=== PATIENT | male | born 1980 | race Caucasian/White ===

== ENCOUNTER 2020-01-10 13:14 | Outpatient (CLI) | payer MEDICAID, SELFPAY ==
--- NOTE | 2020-01-10 13:19 | MR_ITS ---
WS: [id number] MRI LUMBAR SPINE NONCONTRAST HISTORY: M54.5 Low back pain COMPARISON: None available. TECHNIQUE: Sagittal and axial multisequence imaging is submitted. Disc osteophyte disease encroaching upon the ventral cervical cord at C5-6. Mild ectopia of the cereb ellar tonsils. Normal lumbar alignment with no compression fractures or marrow edema. Moderate disc space narrowing and desiccation at L4-5. Mild desiccation at L5-S1. Conus terminates normally at mid L1. L1-L2: Normal. L2-L3: Small amount of fluid in the facet joints. No stenosis. L3-L4: Very shallow central disc protrusion. Mild ligamentum flavum disease and facet arthritis. No s tenosis. L4-L5: Mild diffuse annular disc bulging with a focal central disc protrusion causing mild contact on the ventral thecal sac. There is disc contact upon the L5 nerve roots bilaterally the lateral recess es. Mild bilateral foraminal stenosis. L5-S1: Mild osteophytic ridging with a central disc protrusion. Mild contact on the ventral thecal sa c. The disc protrusion is slightly greater to the LEFT with mild contact and displacement of the S1 n erve root. Retroperitoneum is negative. MR/MR lumbar spine wo con* [id number] IMPRESSION: 1. Mild contact on the L5 nerve roots in the subarticular recesses and mild bi lateral foraminal narrowing. 2. Central disc protrusion at L5-S1 with mild displacement and contact on the LEFT S1 nerve root. 3. No severe central stenosis.
== END 2020-01-10 13:15 | disposition home or self-care (01) ==
LOC: RADSHAW 13:17
PROVIDERS: PCP Nurse Practitioner Family; Visit Provider Nurse Practitioner Family
DX: M51.27 Other intervertebral disc displacement, lumbosacral region (principal)
CPT/HCPCS: 72148; A9579

== ENCOUNTER → 2020-02-01 08:17 | Outpatient (BNVA) | payer MEDICAID, SELFPAY | PROVIDERS: PCP Nurse Practitioner Family; Referring Provider Nurse Practitioner Family; Visit Provider Anesthesiology Pain Medicine | DX: G89.29 Other chronic pain (principal); M51.36 Other intervertebral disc degeneration, lumbar region; M54.16 Radiculopathy, lumbar region; M47.816 Spondylosis without myelopathy or radiculopathy, lumbar region; M96.1 Postlaminectomy syndrome, not elsewhere classified | CPT/HCPCS: 99205 ==

== ENCOUNTER → 2020-03-01 09:14 | Outpatient (BNVA) | payer MEDICAID, SELFPAY | PROVIDERS: PCP Nurse Practitioner Family; Visit Provider Anesthesiology Pain Medicine | DX: M54.41 Lumbago with sciatica, right side (principal); M47.816 Spondylosis without myelopathy or radiculopathy, lumbar region; M51.36 Other intervertebral disc degeneration, lumbar region; M54.16 Radiculopathy, lumbar region; M54.12 Radiculopathy, cervical region | CPT/HCPCS: 99213; 99215 ==

== ENCOUNTER 2020-03-19 13:12 | Outpatient (CLI) | payer MEDICAID, SELFPAY ==
--- NOTE | 2020-03-19 13:45 | MR_ITS ---
WS: [id number] MRI CERVICAL SPINE NONCONTRAST HISTORY: M54.12 - Radiculopathy, cervical region COMPARISON: None available. Technique: Multiplanar, multisequence noncontrast imaging of the cervical spine. Very mild straightening of the normal cervical lordosis. No fractures. Reactive marrow edema in the e ndplates of C5 and C6. Mild disc space narrowing and desiccation at C5-6 and C6-7. Signal within the cord is normal. Craniocervical junction, C1 and C2 relationship, odontoid process and soft tissues are normal. C2-C3: Mild osteophytic ridging with no stenosis. C3-C4: Mild osteophytic ridging with no stenosis. C4-C5: Normal. C5-C6: Moderate osteophytic ridging with osteophytes encroaching into the LEFT paracentral and proxim al LEFT foramen and to a lesser extent the RIGHT foramen. Mild central stenosis. This is predominantl y due to osteophyte disease with a smaller component of disc disease. Moderate LEFT and mild RIGHT fo raminal stenosis. C6-C7: Diffuse osteophytic ridging with a central shallow disc protrusion. Very mild central and bila teral foraminal stenosis. C7-T1: Normal. Paraspinal soft tissue are normal. MR/MR cervical spin wo con* [id number] IMPRESSION: 1. Disc osteophyte disease at C5-6 contributing to mild central and RIGHT fora albert stenosis with moderate LEFT foraminal stenosis. Most significant disc ost eophyte encroachment in the proximal LEFT foramen. 2. Mild central and bilateral foraminal stenosis at C6-7 due to disc osteophyt e disease and mild encroachment upon the ventral thecal sac.
== END 2020-03-19 13:13 | disposition home or self-care (01) ==
LOC: RADSHAW 13:14
PROVIDERS: PCP Nurse Practitioner Family; Visit Provider Anesthesiology Pain Medicine
DX: M54.12 Radiculopathy, cervical region (principal); M25.78 Osteophyte, vertebrae; M48.02 Spinal stenosis, cervical region
CPT/HCPCS: 72141

== ENCOUNTER → 2020-04-10 09:08 | Outpatient (BNVA) | payer MEDICAID, SELFPAY | PROVIDERS: PCP Nurse Practitioner Family; Visit Provider Anesthesiology Pain Medicine | DX: G89.29 Other chronic pain (principal); M54.41 Lumbago with sciatica, right side; M54.16 Radiculopathy, lumbar region; M51.36 Other intervertebral disc degeneration, lumbar region; M47.816 Spondylosis without myelopathy or radiculopathy, lumbar region; M54.12 Radiculopathy, cervical region; Z79.891 Long term (current) use of opiate analgesic | CPT/HCPCS: 99215 ==

== ENCOUNTER → 2020-04-18 13:26 | Outpatient (BNVA) | payer MEDICAID, SELFPAY | PROVIDERS: PCP Nurse Practitioner Family; Visit Provider Orthopaedic Surgery | DX: M54.12 Radiculopathy, cervical region (principal) | CPT/HCPCS: 72050 ==

== ENCOUNTER → 2020-05-03 12:15 | Outpatient (BNVA) | payer MEDICAID, SELFPAY | PROVIDERS: PCP Nurse Practitioner Family; Visit Provider Orthopaedic Surgery | DX: M47.12 Other spondylosis with myelopathy, cervical region (principal); Z20.822 Contact with and (suspected) exposure to COVID-19 | CPT/HCPCS: 87635 ==

== ENCOUNTER 2020-05-08 10:46 | Day surgery (SDC) | payer MEDICAID, SELFPAY ==
[2020-05-03 11:31] VITALS: BMI 28.4
--- NOTE | 2020-05-03 13:17 | ANES.PREANE2 ---
Pre-Anesthetic Assessment Pre-Anesthetic Assessment: Height/Weight: Height 1.78 m Weight 89.811 kg Proposed Procedure: Operation Date: 05/08/20 12:05 Proposed Procedures p Anterior Cervical Discectomy & Fusion ACDF 07/22 32082 [id number] 48437 20782 64087 M47.12 M54.12(Not Applicable) - Edmundomatthew Drew Caron, DO Was Beta Leon taken within 24 hours: N/A Was Clonidine taken within 24 hours: N/A Social: Social History: Tobacco and No alcohol Exam: Pre-Anes Outpt Exam: alert, oriented x 3, clear to auscultation bilaterally and regular rate & rhythm Airway: Submandibular: WNL Cervical ROM: WNL MP: 2 Additional comments: Missing several Musc/skel: Musc/skel: Lower Back Pain Comments: Chronic pain, RUE pain Neuropsych: Neuropsych: Anxiety Anesthetic Plan: ASA status: 3 Risk of > 500 ml blood loss (7ml/kg in children): No PFSH Anesthesia PFSH: Medical History Anxiety Failed back syndrome of lumbar spine Lumbar pain with radiation down both legs PTSD (post-traumatic stress disorder) Surgical History Hx of lumbosacral spine surgery Family History Mother Diabetes Social History Smoking and tobacco status: never smoked Second hand smoke exposure: No Lives independently: Yes History of recent travel: No Data Anesthesia Cardiac Studies: No Data to Display
[2020-05-08] VITALS (11 sets, daily range): BP systolic 105–134; BP diastolic 68–97; PULSE 71–110; RESP 12–24; TEMP 36.4–36.7; O2SAT 92–98
--- NOTE | 2020-05-08 | SCC_ITS ---
Procedure Done: 1. Anterior diskectomy C5/6 2. Anterior discectomy C6/7 3. Insertion of cage C5/6 4. Insertion of Cage C6/7 5. Instrumentation with anterior plate from C5-C7 6. Use of allograft 15.4 seconds of fluoroscopic guidance, for a cumulative dose of 1.96 mGy, was provided to Dr. De La Rosa by the radiology department. C-arm images of the cervical spine were saved for the patient's permanent record. [facility]
--- NOTE | 2020-05-08 | XR_ITS ---
WS: [id number] C-ARM RADIOGRAPHS CERVICAL SPINE; 4 IMAGES HISTORY: ACDF COMPARISON: None available. Intraoperative imaging during internal cervical fusion placement. Anterior cervical fusion plate and screws extends from C5 to C7 with interbody spacers at C5-6 and C6-7. Alignment is normal. XR/XR cervical spine 3V* [id number] IMPRESSION: Intraoperative imaging during anterior cervical fusion from C5 to C7.
[2020-05-08] MEDS: sodium chloride 0.9% 1,000 ML 30 ML IV (11:39)
[2020-05-08] MEDS: ondansetron 2 mg/ML SDV 2 mL 4 MG IVP (11:39)
--- NOTE | 2020-05-08 11:57 | P.ANESUD_ITS ---
Pre-Anesthetic Update Pre-Anesthetic Assessment: Date of Surgery/Procedure: 05/08/20 Preop Karly gnosis: cervical spondylosis with myelopathy Proposed Procedure: Operation Date: 05/08/20 12:15 Proposed Procedures p Anterior Cervical Discectomy & Fusion ACDF 07/22 46533 85092 64429 46493 71690 M47.12 M54.12(Not Applicable) - Edmundo De La Rosa, DO Any changes to Pre-Anesthetic Assessment?: No Last Intake: Intake Last Liquid Date 05/07/20 Last Liquid Time 22:30 Last Solid Date 05/07/20 Last Solid Time 21:00 Vitals: Temperature 98.0 F 05/08/20 11:06 Temperature Source Temporal Artery S can 05/08/20 11:06 Pulse Rate 110 H 05/08/20 11:40 Pulse Rhythm 05/08/20 11:13 Pulse Strength 3+ Normal 05/08/20 11:13 Respiratory Rate 16 05/08/20 11:40 Blood Pressure 108/73 05/08/20 11:40 Blood Pressure Sheeba n 84 05/08/20 11:40 Pulse Oximetry 95 05/08/20 11:40 Oxygen Delivery Me thod 05/08/20 11:40 Exam: Pre-Anes Outpt Exam: alert, oriented x 3, clear to auscultation bilaterally and regular rate & rhythm Other Pertinent Information: Other Pertinent Information: Remembers reaching for his mask on previou ssurgery Cardiac Studies: No Data to Display
[2020-05-08 12:17] LABS: Basophils # 0.1 10^3/uL (0.0-0.1); Basophils % 0.7 %; Eosinophils # 0.1 10^3/uL (0.0-0.8); Eosinophils % 0.8 %; Hematocrit 50.5 % (42.0-52.0); Hemoglobin 16.9 g/dL (11.7-16.6); Lymphocytes # 3.1 10^3/uL (0.8-4.8); Mean Corpuscular HGB Conc 33.5 g/dL (30.0-36.0); Mean Corpuscular Hemoglobin 31.2 pg (28.0-34.0); Mean Corpuscular Volume 93.3 fL (80-94); Mean Platelet Volume 10.9 fL (7.4-10.4); Monocytes # 0.5 10^3/uL (0.2-0.9); Monocytes % 6.1 %; Neutrophils # 3.85 10^3/uL (1.8-7.7); Neutrophils % 51.1 %; Nucleated Red Blood Cells % 0 %; Platelet Count 261 10^3/cmm (130-400); Red Blood Count 5.41 10^6/uL (4.1-5.3); Red Cell Distribution Width 11.8 % (12.1-15.1); White Blood Count 7.5 10^3/uL (4.0-10.0)
[2020-05-08 12:35] LABS: Blood Urea Nitrogen 12 mg/dL (6-20); Carbon Dioxide 26 mmol/L (22-29); Glomerular Filtration Rate 94.4 mL/min (90-130); Glucose 108 mg/dL (65-115)
[2020-05-08 13:19] LABS: Chloride 101 mmol/L (98-107); Osmolality Calculated 284 mOsm/kg (285-295); Sodium 137 mmol/L (136-145)
[2020-05-08 13:20] LABS: Anion Gap 13.9 (5-19); Potassium 3.9 mmol/L (3.5-5.1)
--- NOTE | 2020-05-08 14:16 | P.HP_ITS ---
Providers/Chief Complaint Primary Care Provider: CONCEPCIÓN العلي Chief Complaint: radiculopaty History of Present Illness Darien Bell is a 39 year old male patient who presents to the clinic for evaluation of his neck pain. He has had pain to his neck and lower back for several years. He states his pain is gradually worsening. He has complaints of numbness and tingling to both hands, complaints of headaches daily. He was being seen by Dr. Amaya, and referred here. Associated symptoms: Denies abdominal pain, chills, fever(s), nausea or vomiting Review of Systems Narrative: Denies: fever(s) or chills Card: Denies: chest pain or dyspnea on exertion Resp: Denies: dyspnea or productive cough GI: Denies: abdominal pain, nausea or vomiting Musc: Reports: neck pain Skin/Breast: Denies: changes in skin color or dry skin Neuro: Reports: headache(s) and numbness in extremities; Denies: weakness in extremities Psych: Denies: anxiety Rahul/Lymph: Denies: easy bruising or easy bleeding Medications/Allergies Home Medications Medication Instructions Recorded Confirmed Last Taken Type [id number] Bone Growth Stimulator #1 ea 04/22/20 04/23/20 Unknown Rx baclofen 10 mg tablet 10 mg PO BID #28 tab 04/23/20 05/08/20 05/06/20 Rx duloxetine 60 mg capsule,delayed 60 mg PO DAILY #30 cap 04/29/20 05/08/20 05/07/20 Rx release Allergies Allergy/AdvReac Type Severity Reaction Status Date / Time amitriptyline AdvReac Severe ALGY-Anaphy Verified 05/03/20 11:29 laxis PFSH Acute PFSH: Medical History Anxiety Failed back syndrome of lumbar spine Lumbar pain with radiation down both legs PTSD (post-traumatic stress disorder) Surgical History Hx of lumbosacral spine surgery Family History Mother Diabetes Social History Smoking and tobacco status: never smoked Second hand smoke exposure: No Lives independently: Yes History of recent travel: No Vitals/I&O/Wt Last Vital Signs Temp 98.0 F 05/08/20 11:06 Pulse 110 H 05/08/20 11:40 Resp 16 05/08/20 11:40 BP 108/73 05/08/20 11:40 Pulse Ox 95 05/08/20 11:40 Physical Exam Narrative: EXAM NARRATIVE: EXAM NARRATIVE: CONSTITUTIONAL: The patient is normal appearing, well groomed, cooperative and in no apparent distress. GENERAL: Patient in no acute distress. Well nourished. CARDIAC: Regular rate and rhythm. CHEST: Normal inspiratory effort, normal respiratory rate. ABDOMEN: Soft and non-tender SKIN: Clear, warm and intact. NEURO?PSYCH: The patient is alert and oriented to person, place and time. NEUROVASCULAR: Upper Extremity Sensory - SILT. Motor Strength: Shoulder abduction C5: 5/5; Wrist extension C6: 5/5; Elbow extension C7: 5/5; Hand Injection Mold Technician C8: 5/5; Finger abduction T1: 5/5. Radial/ Ulnar/ Median in intact Lower Extremity Sensory - SILT. Motor Strength: Hip flexion L2/3; Ant/inner thigh: 5/5; Hip adduction L2/3: 5/5; Knee extension L4 Lat thigh: 5/5; Toe dorsiflexion L5: 5/5; Ankle dorsiflexion L5/ S1: 5/5; Plantar flexion S1: 5/5. DTR: Triceps 2+; Brachioradialis 2+; Patellar 2+; Achilles 2+. MUSCULOSKELETAL: UPPER EXTREMITIES: The patient had full active ROM in fingers, wrist, elbow, and shoulder. The patient demonstrated ability to fully flex/extend/abduct/adduct fingers, make ok sign, cross 2nd/3rd digits, extend 1st digit fully.. Radial pulse 2+, CR<2 seconds. LOWER EXTREMITIES: Pt has full, active ROM of toes, ankle, knee, and hip. Dorsalis pedis & posterior tibialis pulses 2+, CR<2 seconds. SPINE: Skin warm, dry, intact. Data : 05/08/20 11:40 05/08/20 11:40 A&P Assessment and plan (1) Cervical spondylosis with myelopathy: C5/6 C6/7 ACDF Status: Acute Attestations Medical Necessity Statement*: progressive numbness Coding Level of Care Code Acute Bridge Design Engineer for Chg Rumad Diagnoses Cervical spondylosis with myelopathy M47.12
[2020-05-08] MEDS: thrombin 5,000 unit SDV 5000 UNIT XX (15:49)
--- NOTE | 2020-05-08 17:21 | PM.OP ---
Operative Report Date of procedure: May 08, 2020 Pre-op Diagnosis: cervical spondylosis with myelopathy Post-op diagnosis: same Procedure Done: 1. Anterior diskectomy C5/6 2. Anterior discectomy C6/7 3. Insertion of cage C5/6 4. Insertion of Cage C6/7 5. Instrumentation with anterior plate from C5-C7 6. Use of allograft Surgeon: Edmundo De La Rosa Anesthesia: General Estimated blood loss (mL): 25 Condition: stable Disposition: PACU Procedure: 1. Anterior diskectomy C5/6 2. Anterior discectomy C6/7 3. Insertion of cage C5/6 4. Insertion of Cage C6/7 5. Instrumentation with anterior plate from C5-C7 6. Use of allograf The patient was taken to the operating room, where he underwent general endotracheal anesthesia without complications. He was then positioned supine on the operating table, and all areas of impingement were well padded. The arms were carefully padded and tucked at his sides. A roll was placed between the shoulder blades.. An x-ray was done to determine the appropriate level for the skin incision. The entire neck was then sterilely prepped and draped in the usual fashion. Neuromonitoring was attached prior to prepping. A transverse skin incision was made and carried down to the platysma muscle. This was then split in line with its fibers. Blunt dissection was carried down medial to the carotid sheath and lateral to the trachea and esophagus until the anterior cervical spine was visualized. A needle was placed into a disc and an x-ray was done to determine its location. The longus colli muscles were then elevated bilaterally with the electrocautery unit. Self-retaining retractors were placed deep to the longus colli muscle. Attention was brought to the C5/6/7 level that was confirmed on x-ray. A caspar pin was placed into the C5 vertebrae and the C6 vertebrae. The disk space was then distracted. The microscope was then brought in. A radical anterior discectomies were performed at C5/6. This included complete removal of the anterior annulus, nucleus, and posterior annulus. The posterior longitudinal ligament was removed as were the posterior osteophytes. Foraminotomies were then accomplished bilaterally. This was done using a high speed sharath, kerrison rongeurs and curretes Once all of this was accomplished, the curved currette was used to check for any residual compression. The central canal was wide open as were the foramen. A high-speed bur was used to remove the cartilaginous endplates above and below the interspace. Bleeding cancellous bone was exposed. The disc space were measured and appropriate size cage were placed sterilely onto the field. Allograft graft was packed into the cages. The cage was then placed and there was good juxtaposition against the bleeding decorticated surfaces and good distraction of each interspace. Attention was brought to the next interspace. A caspar pin was placed into the C6 vertebrae and the C7 vertebrae. The disk space was then distracted. The microscope was then brought in. A radical anterior discectomies were performed at C6/7. This included complete removal of the anterior annulus, nucleus, and posterior annulus. The posterior longitudinal ligament was removed as were the posterior osteophytes. Foraminotomies were then accomplished bilaterally. This was done using a high speed sharath, kerrison rongeurs and curretes Once all of this was accomplished, the curved currette was used to check for any residual compression. The central canal was wide open as were the foramen. A high-speed bur was used to remove the cartilaginous endplates above and below the interspace. Bleeding cancellous bone was exposed. The disc space were measured and appropriate size cage were placed sterilely onto the field. Allograft graft was packed into the cages. The cage was then placed and there was good juxtaposition against the bleeding decorticated surfaces and good distraction of each interspace The [place] pins were removed. Bone wax was used to prevent any bleeding from occurring at the pin sites. The appropriate size anterior cervical locking plate was chosen and bent into gentle lordosis. Two screws were then placed into each of the vertebral bodies at C5,C6 and C7. There was excellent purchase. A final x-ray was done confirming good position of the hardware and Cages. The locking screws were then applied, also with excellent purchase. Following a final copious irrigation, there was good hemostasis and no dural leaks. The carotid pulse was strong. The wounds were then closed in layers using 2-0 Vicryl suture for the platysma muscle, 2-0 Vicryl suture for the subcutaneous tissue, and 4-0 monocryl suture in a subcuticular skin closure. Glue was placed followed by application of a sterile dressing. The drain was hooked to bulb suction. A soft collar was applied. The patient was then carefully returned to the supine position on his hospital bed where he was reversed and extubated and taken to the recovery room having tolerated the procedure well.
--- NOTE | 2020-05-08 17:30 | P.PCN_ITS ---
PACU note PACU note: VSS, Good respiratory effort, report to DIE TRY OUT WORKER STAMPING Post-Anesthesia Exam: somnolent, arousable and vital signs stable
--- NOTE | 2020-05-08 17:30 | PM.PACU ---
PACU note PACU note: VSS, Good respiratory effort, report to SEISMOGRAPH SUPERVISOR Post-Anesthesia Exam: somnolent, arousable and vital signs stable
--- NOTE | 2020-05-08 17:37 | SUR.PHASEI ---
1722 PATIENT TO PACU FROM OR. RR EVEN AND UNLABORED. ORAL AIRWAY IN PLACE, SPO2 94% ON SIMPLE MASK. DRESSING TO ANTERIOR NECK, CDI WITH COLLAR IN PLACE.
--- NOTE | 2020-05-08 17:41 | SUR.PHASEI ---
1742 ORAL AIRWAY REMOVED. SPO2 95% ON RA.
--- NOTE | 2020-05-08 17:57 | SUR.PHASEI ---
1753 PATIENT TO OPS AT THIS TIME. RR EVEN AND UNLABORED. COLAR IN PLACE TO NECK, ANTERIOR DRESSING TO NECK, CDI.
[2020-05-08] MEDS: ketorolac 30 mg/mL INJ IVP (18:22)
--- NOTE | 2020-05-08 20:27 | ANE.PACU2 ---
Inpatient post-anesthesia follow up: Airway intact: Yes Vital signs: Temperature 97.6 F Pulse Rate 101 Respiratory Rate 18 Blood Pressure 133/86 Pulse Oximetry 93 Oxygen Delivery Me thod Room Air Oxygen Flow Rate 3 Fraction of Inspir ed Oxygen Hydration adequate: Yes Nausea and vomiting: No Pain level: 4 Mental status: Baseline
[2020-05-10] MEDS: HYDROcodone-acetaminophen 5-325 mg Tablet 2 TAB PO (16:12)
== END 2020-05-08 19:15 | disposition home or self-care (01) ==
PROVIDERS: PCP Nurse Practitioner Family; Visit Provider Orthopaedic Surgery
PROC: 0RB30ZZ Excision of Cervical Vertebral Disc, Open Approach (ICD-10-PCS; CPT 22551; principal; 2020-05-08 12:05)
DX: M47.12 Other spondylosis with myelopathy, cervical region (principal); Z98.890 Other specified postprocedural states; F41.9 Anxiety disorder, unspecified
CPT/HCPCS: 20930; 22551; 22552; 22845; 22853; 36415; 72040; 76000; 80048; 85025; 96374; 97760; C1713; C9359; J0330; J0690; J1100; J1885; J2250; J2370; J2405; J2704; J3010; J3490; J7030; L0174

== ENCOUNTER → 2020-05-30 10:06 | Outpatient (BNVA) | payer MEDICAID, SELFPAY | PROVIDERS: PCP Nurse Practitioner Family; Visit Provider Anesthesiology Pain Medicine | DX: G89.29 Other chronic pain (principal); M54.16 Radiculopathy, lumbar region; M51.36 Other intervertebral disc degeneration, lumbar region; M47.816 Spondylosis without myelopathy or radiculopathy, lumbar region; M54.12 Radiculopathy, cervical region; Z98.1 Arthrodesis status; Z79.891 Long term (current) use of opiate analgesic | CPT/HCPCS: 99214 ==

== ENCOUNTER → 2020-06-20 09:26 | Outpatient (BNVA) | payer MEDICAID, SELFPAY | PROVIDERS: PCP Nurse Practitioner Family; Visit Provider Orthopaedic Surgery | DX: Z48.89 Encounter for other specified surgical aftercare (principal) | CPT/HCPCS: 72040 ==

== ENCOUNTER → 2020-06-27 11:02 | Outpatient (BNVA) | payer MEDICAID, SELFPAY | PROVIDERS: PCP Nurse Practitioner Family; Visit Provider Anesthesiology Pain Medicine | DX: G89.29 Other chronic pain (principal); M54.12 Radiculopathy, cervical region; M54.16 Radiculopathy, lumbar region; M51.36 Other intervertebral disc degeneration, lumbar region; M47.816 Spondylosis without myelopathy or radiculopathy, lumbar region; Z79.891 Long term (current) use of opiate analgesic | CPT/HCPCS: 99214 ==

== ENCOUNTER → 2020-07-25 09:07 | Outpatient (BNVA) | payer MEDICAID, SELFPAY | PROVIDERS: PCP Nurse Practitioner Family; Visit Provider Anesthesiology Pain Medicine | DX: G89.29 Other chronic pain (principal); M54.16 Radiculopathy, lumbar region; M51.36 Other intervertebral disc degeneration, lumbar region; M47.816 Spondylosis without myelopathy or radiculopathy, lumbar region; M54.12 Radiculopathy, cervical region; Z79.891 Long term (current) use of opiate analgesic | CPT/HCPCS: 99214 ==

== ENCOUNTER → 2020-08-01 09:21 | Outpatient (BNVA) | payer MEDICAID, SELFPAY | PROVIDERS: PCP Nurse Practitioner Family; Visit Provider Orthopaedic Surgery | DX: Z48.89 Encounter for other specified surgical aftercare (principal) | CPT/HCPCS: 72040 ==

== ENCOUNTER → 2020-09-09 09:40 | Outpatient (BNVA) | payer MEDICAID, SELFPAY | PROVIDERS: PCP Nurse Practitioner Family; Visit Provider Anesthesiology Pain Medicine | DX: G89.29 Other chronic pain (principal); M54.16 Radiculopathy, lumbar region; M51.36 Other intervertebral disc degeneration, lumbar region; M47.816 Spondylosis without myelopathy or radiculopathy, lumbar region; M25.551 Pain in right hip; M54.12 Radiculopathy, cervical region; M79.604 Pain in right leg; M79.605 Pain in left leg; Z79.891 Long term (current) use of opiate analgesic | CPT/HCPCS: 99214 ==

== ENCOUNTER → 2020-09-12 09:14 | Outpatient (BNVA) | payer MEDICAID, SELFPAY | PROVIDERS: PCP Nurse Practitioner Family; Visit Provider Orthopaedic Surgery | DX: Z48.89 Encounter for other specified surgical aftercare (principal); M54.5 Low back pain; M48.061 Spinal stenosis, lumbar region without neurogenic claudication | CPT/HCPCS: 72040; 72110 ==

== ENCOUNTER → 2020-10-07 09:31 | Outpatient (BNVA) | payer MEDICAID, SELFPAY | PROVIDERS: PCP Nurse Practitioner Family; Visit Provider Anesthesiology Pain Medicine | DX: G89.29 Other chronic pain (principal); M54.16 Radiculopathy, lumbar region; M51.36 Other intervertebral disc degeneration, lumbar region; M47.816 Spondylosis without myelopathy or radiculopathy, lumbar region; M54.12 Radiculopathy, cervical region; Z79.891 Long term (current) use of opiate analgesic | CPT/HCPCS: 99214 ==

== ENCOUNTER → 2020-10-14 08:56 | Outpatient (BNVA) | payer MEDICAID, SELFPAY | PROVIDERS: PCP Nurse Practitioner Family; Visit Provider Nurse Practitioner Family | DX: Z01.818 Encounter for other preprocedural examination (principal); K04.7 Periapical abscess without sinus; Z20.822 Contact with and (suspected) exposure to COVID-19 | CPT/HCPCS: 85025; 86140; 87635 ==

== ENCOUNTER 2020-10-18 17:26 | Inpatient (IN) | payer MEDICAID, SELFPAY ==
[2020-10-11 10:49] VITALS: BMI 27.9
--- NOTE | 2020-10-11 16:14 | P.ANESASSM_ITS ---
Pre-Anesthetic Assessment Pre-Anesthetic Assessment: Height/Weight: Height 1.78 m Weight 88.451 kg Preop Diagnosis: cervical spondylosis with myelopathy Proposed Procedure: Operation Date: 10/18/20 11:40 Proposed Procedures p L4/5 & L5/S1 Interbody fusion with posterolateral fusion/Instrumentation L4- S1/Cage at L4/5 and L5/S1/Navigation/Allograft [id number] [id number] 35833 [id number] 55337 19048 14247 M48.061(Not Applicable) - Edmundo De La Rosa, DO Was Beta Leon taken within 24 hours: N/A Was Clonidine taken within 24 hours: N/A Social: Social History: No alcohol and No tobacco Exam: Pre-Anes Outpt Exam: alert, oriented x 3, clear to auscultation bilaterally and regular rate & rhythm Airway: Submandibular: WNL Cervical ROM: Other (Decreased ROM) MP: 2 Dentition: Chipped Additional comments: ?dental abscess Musc/skel: Musc/skel: Lower Back Pain and OA/DJD Neuropsych: Neuropsych: Anxiety Anesthetic Plan: ASA status: 3 Anesthesia: General Risk of > 500 ml blood loss (7ml/kg in children): No PFSH Anesthesia PFSH: Medical History Anxiety Failed back syndrome of lumbar spine Lumbar pain with radiation down both legs PTSD (post-traumatic stress disorder) Surgical History Hx of lumbosacral spine surgery Family History Mother Diabetes Social History (Updated 10/07/20 @ 09:40 by Wandy Daniel LPN) Second hand smoke exposure: No Alcohol intake: never Lives independently: Yes History of recent travel: No Data Anesthesia Cardiac Studies: No Data to Display
[2020-10-18] VITALS (23 sets, daily range): BP systolic 119–160; BP diastolic 73–109; PULSE 90–125; RESP 16–24; TEMP 36.6–37.7; O2SAT 95–99; BMI 27.9
--- NOTE | 2020-10-18 | XR_ITS ---
WS: [id number] C-ARM RADIOGRAPHS LUMBAR SPINE; 3 IMAGES HISTORY: JUAN PICS COMPARISON: None available. Intraoperative imaging during lumbar spine fusion. There is extensive hardware overlying the lumbar r egion. XR/XR lumbar spine 1V port [id number] IMPRESSION: Intraoperative imaging during lumbar spine fusion.
--- NOTE | 2020-10-18 | SCC_ITS ---
Procedure Done: 1. L4/5 Interbody fusion with posterolateral fusion 2. L5/S1 Interbody fusion with posterolateral fusion 3. Instrumentation L4-S1 4. Cage at L4/5 5. Cage at L5/S1 6. Laminectomy L4 7. Laminectomy L5 8.. use of autograft from same incision 9. allograft 10. Bone marrow aspirate from right iliac crest 11. Use of computer navigation/ stereotactic for spine 27 seconds of fluoroscopic guidance, for a cumulative dose of 45.7 mGy, was provided to Dr. De La Rosa by the radiology department. C-arm images of the lumbar spine were saved for the patient's permanent record. [facility]
--- NOTE | 2020-10-18 06:42 | P.ANESUD_ITS ---
Pre-Anesthetic Update Pre-Anesthetic Assessment: Date of Surgery/Procedure: 10/18/20 Preop Karly gnosis: lumbar stenosis Proposed Procedure: Operation Date: 10/18/20 07:30 Proposed Procedures p L4/5 & L5/S1 Interbody fusion with posterolateral fusion/Instrumentation L4- S1/Cage at L4/5 and L5/S1/Navigation/Allograft [id number] 46679 47245 28262 29359 19176 22393 M48.061(Not Applicable) - Edmundo De La Rosa, DO Any changes to Pre-Anesthetic Assessment?: No Last Intake: Intake Last Liquid Date 10/17/20 Last Liquid Time 23:00 Last Solid Date 10/17/20 Last Solid Time 22:00 Vitals: Temperature 97.8 F 10/18/20 06:17 Temperature Source Temporal Artery S can 10/18/20 06:17 Pulse Rate 90 10/18/20 06:17 Respiratory Rate 18 10/18/20 06:17 Blood Pressure 139/105 10/18/20 06:17 Blood Pressure Sheeba n 116 10/18/20 06:17 Pulse Oximetry 98 10/18/20 06:17 Oxygen Delivery Me thod 10/18/20 06:17 Exam: Pre-Anes Outpt Exam: alert, oriented x 3, clear to auscultation bilaterally and regular rate & rhythm Cardiac Studies: No Data to Display
--- NOTE | 2020-10-18 06:52 | PM.HP ---
Providers/Chief Complaint Primary Care Provider: CONCEPCIÓN العلي Chief Complaint: L4/5 Interbody fusion with posterolateral fusion 2 History of Present Illness Darien Bell is a 40 year old male who has chronic low back pain. At this point patient has had several years of pain first getting worse. He is undergone physical therapy and injections with no relief. He has some degeneration of L4-5 and L5-S1 with compression on nerves. Patient is here for fusion of L4-S1. Review of Systems Narrative: General ROS: negative for weight changes, fever ENT ROS: negative for nasal congestion, drainage or bleeding, sore throat, dysphagia or ear pain Eyes: PERRL Hematological and Lymphatic ROS: negative for swollen glands or abnormal bleeding Endocrine ROS: negative for polyuria/polydpsia or new changes in weight Respiratory ROS: negative for cough, shortness of breath, or wheezing Cardiovascular ROS: negative for chest pain or dyspnea on exertion Gastrointestinal ROS: negative for reflux, abdominal pain, change in bowel habits, or black or bloody stools Musculoskeletal ROS: negative for back pain, neck pain, or joint pain or swelling except for current problem Neurological ROS: negative for TIA or stoke symptoms Skin: no rashes Medications/Allergies Home Medications Medication Instructions Recorded Confirmed Last Taken Type E0748 Bone Growth Stimulator #1 ea 04/22/20 10/14/20 Unknown Rx hydrocodone 5 mg-acetaminophen 325 1 - 2 tab PO .Q4-6H PRN 7 Days #40 08/02/20 10/14/20 10/18/20 04:00 Rx mg tablet tab duloxetine 60 mg capsule,delayed 60 mg PO DAILY #30 cap 08/28/20 10/14/20 10/18/20 04:00 Rx release Bone stimulator E0748 #1 ea 10/04/20 10/14/20 Unknown Rx amoxicillin 500 mg capsule 500 mg PO TID 7 Days #21 cap 10/14/20 10/18/20 10/18/20 04:00 Rx Allergies Allergy/AdvReac Type Severity Reaction Status Date / Time tramadol Allergy increased Verified 10/14/20 08:25 pain amitriptyline AdvReac Severe ALGY-Anaphy Verified 10/14/20 08:25 laxis PFSH Acute PFSH: Medical History Anxiety Failed back syndrome of lumbar spine Lumbar pain with radiation down both legs PTSD (post-traumatic stress disorder) Surgical History Hx of lumbosacral spine surgery Family History Mother Diabetes Social History Second hand smoke exposure: No Alcohol intake: never Lives independently: Yes History of recent travel: No Vitals/I&O/Wt Last Vital Signs Temp 97.8 F 10/18/20 06:17 Pulse 90 10/18/20 06:17 Resp 18 10/18/20 06:17 BP 139/105 10/18/20 06:17 Pulse Ox 98 10/18/20 06:17 Physical Exam Narrative: EXAM NARRATIVE: CONSTITUTIONAL: The patient is a normal appearing [] in no apparent distress. GENERAL: Patient in no acute distress. CARDIAC: Regular rate and rhythm. CHEST: Normal inspiratory effort, normal respiratory rate. ABDOMEN: Soft and nontender. SKIN: Clear, warm and intact. NEURO?PSYCH: The patient is alert and oriented to person, place and time. Sensorv /SILT Motor StrengthShoulder abduction C5 5/5Wrist extension C6 5/5Elbow extension C7 5/5Hand Professional Development Director C8 5/5Finger abduction T15/5 Radial/ Ulnar/ Median n intact LowerSensory (SILT)Motor StrengthHin flexion L2/3Ant/inner thigh 5/5Hip adduction L2/3 5/5Knee extension L4 Lat thigh, 5/5Toe dorsiflexion L5 5/5Ankle dorsiflexion L5/ O70[place]wjy flexion S1 5/5 DTRBleeps 2+Triceps 2+Brachioradialis 2+Patellar 2+Achilles 2+ MUSCULOSKELETAL: [] UPPEREXTREMITIES: The patient had full active ROM in fingers, wrist, elbow, and shoulder. The patient demonstrated ability to fully flex/extend/abduct/adduct fingers, make ok sign, cross 2nd/3rd digits, extend 1st digit fully.. Radial pulse 2+, CR<2 seconds. LOWER EXTREMITIES: Pt has full, active ROM of toes, ankle, knee, and hip. Dorsalis pedis/posterior tibialis pulses 2+, CR<2 seconds. SPINE: Skin warm, dry, intact. A&P Assessment and plan (1) Lumbar radiculopathy: Plan is to do an L4-5 and L5-S1 posterior lumbar interbody fusion. Risk and benefits were explained the patient which include bleed infection scar pain damage blood vessels nerves risk for surgery and anesthesia risk. Status: Acute Attestations Medical Necessity Statement*: failed conservative tx Coding Level of Care Code Acute [facility] [place] Diagnoses Lumbar radiculopathy M54.16
--- NOTE | 2020-10-18 12:24 | PC.NURSE ---
Pt was sent home this morning because there were no inpatient beds for him. He was then called back because a bed became available. Getting him ready for the second time, but IV was not started the first time
[2020-10-18] MEDS: sodium chloride 0.9% 1,000 ML 30 ML IV (12:34)
--- NOTE | 2020-10-18 20:26 | PM.OP ---
Operative Report Date of procedure: October 18, 2020 Pre-op Diagnosis: lumbar stenosis Post-op diagnosis: same Procedure Done: 1. L4/5 Interbody fusion with posterolateral fusion 2. L5/S1 Interbody fusion with posterolateral fusion 3. Instrumentation L4-S1 4. Cage at L4/5 5. Cage at L5/S1 6. Laminectomy L4 7. Laminectomy L5 8.. use of autograft from same incision 9. allograft 10. Bone marrow aspirate from right iliac crest 11. Use of computer navigation/ stereotactic for spine Procedure: 1. L4/5 Interbody fusion with posterolateral fusion 2. L5/S1 Interbody fusion with posterolateral fusion 3. Instrumentation L4-S1 4. Cage at L4/5 5. Cage at L5/S1 6. Laminectomy L4 7. Laminectomy L5 8.. use of autograft from same incision 9. allograft 10. Bone marrow aspirate from right iliac crest 11. Use of computer navigation/ stereotactic for spine Patient is brought to the operative suite. After undergoing anesthesia, the patient had neuro monitoring attached. Patient was then placed in the prone position on the Chetan table. All areas of impingement were well-padded. Patient was then prepped and draped in the normal sterile fashion. Skin incision was then made L4 to S1. Subperiosteal dissection was made out to the transverse processes of L4 to S1. Once the exposure was complete attention was then brought to placing the pedicle screws in the computer navigation fiducial. The K wire pins were driven into the right iliac crest. The fiducial was then attached to it. The C arm was then spun around the patient and the information was loaded into the computer to be used for computer navigation.. Prior to placing the pedicle screws the [employer] bone marrow aspirate kit was used to aspirate bone marrow aspirate from the right iliac crest. This was done by using the sharp probe to open up the bone. Aspiration was performed and then the blunt probe was then used to dissect down to through the bone tunnel. An aspirating well drawn back a millimeter approximately 20 cc of bone marrow aspirate was used. And mixed with the allograft and autograft bone that will be used. The technique for placing the pedicle screws was to use a drill followed by the gearshift probe attached to computer navigation. Followed by the ball probe to feel the superior inferior medial lateral fermin of the pedicles. Then placement of the screws links to the computer navigation. Was done at each pedicle. Screws were placed at L4 bilaterally and L5 bilaterally and S1 bilaterally. Next attention was brought to performing the laminectomy ofL4. This was done using the high-speed bur Kerrisons and curettes. Once the lamina was removed and then attention was brought to performing a partial facetectomy on the contralateral side. This was done again using the high-speed bur curettes and Kerrisons. The ligamentum flavum was taken down bilaterally from L4 to L5. Attention was then brought to the facet on the ipsilateral side. The facet was taken down. The L5 nerve was decompressed as it passed around the L5 pedicle. The laminectomy was done for purposes of decompressing the nerve as well as placement of the cage. The L4 nerve was identified as it traversed through the L4/5 foramen. The thecal sac was identified and retracted. The L4/5 disc base was identified. Using a knife the disc base was opened. And then sequential bhavya were placed. The first shaver was a 6 and the last shaver was a 9. Using a pituitary and down going curette the endplates were scraped and disc material was removed from the space. Once adequate decompression of the disc base was felt to be had. Osteoamp sponge was packed into the anterior aspect of the disc base. Then a size 9 cage from [employer] was placed after packing osteoamp into the cage. While placing the cage the thecal sac and L5 nerve was protected. C arm was used to ensure that the cages placed in the appropriate position. Next attention was brought to performing the laminectomy ofL5. This was done using the high-speed bur Kerrisons and curettes. Once the lamina was removed and then attention was brought to performing a partial facetectomy on the contralateral side. This was done again using the high-speed bur curettes and Kerrisons. The ligamentum flavum was taken down bilaterally from L5 to S1. Attention was then brought to the facet on the ipsilateral side. The facet was taken down. The S1 nerve was decompressed as it passed around the S1 pedicle. The laminectomy was done for purposes of decompressing the nerve as well as placement of the cage. The L5 nerve was identified as it traversed through the L5/S1 foramen. The thecal sac was identified and retracted. The L5/S1 disc base was identified. Using a knife the disc base was opened. And then sequential bhavya were placed. The first shaver was a 6 and the last shaver was a 9. Using a pituitary and down going curette the endplates were scraped and disc material was removed from the space. Once adequate decompression of the disc base was felt to be had. Osteoamp sponge was packed into the anterior aspect of the disc base. Then a size 9 cage from [employer] was placed after packing osteoamp into the cage. While placing the cage the thecal sac and S1 nerve was protected. C arm was used to ensure that the cages placed in the appropriate position. Attention was then brought to attaching the rods to the screws placed in the L4 to S1 bilaterally. Caps were torqued into position. Locking the construct in place. Wound was copiously irrigated and then attention was brought to decorticating the facets and transverse processes laterally. Bone that was taken down from the lamina was used along with osteoamp fibers and sponges were packed into the lateral gutters along the facet joints. This was done bilaterally. Wound was then closed in a layered fashion starting with the thoracolumbar fascia. 0-Stratafix was used the sub cutaneous tissue was closed with 2-0 vicryl and skin with 2-0 stratafix and 3-0 nylon. A Silverlon steril dressing was applied. Patient was then placed in the supine position. The endotracheal tube was removed and patient was transferred to the PACU in stable condition.
[2020-10-18] MEDS: fentaNYL 50 mcg/mL INJ 2mL IVP ×2 (21:24→21:38)
[2020-10-18] MEDS: HYDROcodone-acetaminophen 5-325 mg Tablet PO (23:27)
[2020-10-19 00:17] VITALS: BP 150/91; PULSE 105; RESP 18; TEMP 37.3; O2SAT 97
[2020-10-19] MEDS: HYDROcodone-acetaminophen 5-325 mg Tablet PO ×2 (04:22→12:39)
[2020-10-19] MEDS: enoxaparin 40 mg/0.4 mL Syringe SUBCUT (04:22)
[2020-10-19 04:46] VITALS: BP 114/71; PULSE 97; RESP 18; TEMP 37.6; O2SAT 100
--- NOTE | 2020-10-19 06:49 | PC.NURSE ---
Hemovac Drain emptied 180mL out
[2020-10-19 07:22] VITALS: BP 130/57; PULSE 99; RESP 16; TEMP 36.7; O2SAT 96
[2020-10-19] MEDS: amoxicillin 500 mg Capsule PO (09:22)
[2020-10-19] MEDS: duloxetine 60 mg Capsule PO (09:23)
--- NOTE | 2020-10-19 09:41 | P.DS_ITS ---
Discharge Providers Date of Admission: 10/18/20 17:26 Date of Discharge: October 19, 2020 Attending Provider at Admission: Edmundo De La Rosa DO Attending Provider at Discharge: Edmundo De La Rosa DO Primary Care Provider: CONCEPCIÓN العلي Diagnoses at Discharge Discharge Diagnosis (1) Lumbar radiculopathy: Status: Acute Reason for Visit Reason for Visit: L4/5 Interbody fusion with posterolateral fusion 2 Hospital Course Hospital Course Patient was admitted to the hospital on 10/18/20 he was discharged 10/19/2020. The hospital course was uneventful. Physical Exam Narrative: EXAM NARRATIVE: Up ambulating minimal drainage in drain Urinary Catheter Management^: Camp: Cath Placed During This Visit: yes, but has since been removed by the nurse Reason for Continuing Indwelling Catheter: Not indwelling catheter Urinary Catheter Date of Insertion: 10/18/20 Urinary Catheter Time of Insertion: 16:55 Date Urinary Catheter Removed: 10/19/20 Time Urinary Catheter Discontinued: 00:00 Discharge Data Data Completed and Pending: Pending at discharge Category Date Time Status C-arm Fluoroscopy [id number] Routine Exams 10/18/20 06:05 Taken Vitals: Last Vital Signs Temp 98.0 F 10/19/20 07:22 Pulse 99 10/19/20 07:22 Resp 16 10/19/20 07:22 BP 130/57 10/19/20 07:22 Pulse Ox 96 10/19/20 07:22 Discharge Plan Discharge Patient Disposition: Home Condition: Stable Prescriptions: New hydrocodone-acetaminophen 5-325 mg tablet 1 - 2 tab PO .Q4-6H Qty: 40 RF: 0 Continued amoxicillin 500 mg capsule 500 mg PO TID 7 Days Qty: 21 RF: 0 (DME) E0748 Bone Growth Stimulator See Rx Instructions .Route .MEDSUPPLY Qty: 1 RF: 0 hydrocodone-acetaminophen 5-325 mg tablet 1 - 2 tab PO .Q4-6H PRN (Reason: pain) 7 Days Qty: 40 RF: 0 duloxetine [Cymbalta] 60 mg capsule,delayed release(DR/EC) 60 mg PO DAILY Qty: 30 RF: 3 (DME) Bone stimulator E0748 See Rx Instructions .Route .MEDSUPPLY Qty: 1 RF: 0 Discharge Orders: Discharge Order (Routine); Ordered 10/19/20 Ordered By: Edmundo De La Rosa Discharge Diet: Advance as tolerated Discharge Activity: Limit activity as instructed Patient Instructions: Opioid Safety Activity Restrictions/Additional Instructions: Thank you for [facility] for your care! The following is a list of instructions, from your provider, to follow upon your discharge to ensure you have the optimal recovery from your recent injury orsurgery. Follow-up care is a zapien part of your treatment and safety. Be sure to make and go to all appointments, and call your doctor if you are having problems. If you do not already have a follow-up appointment made, call Dr. De La Rosa office in the next 1-3 days to make follow up appointment for 1 weeks at [phone]. It is also a good idea to know your test results and keep a list of the medicines you take. Medications will be prescribed for you at your provider's discretion. These medications are to be used as instructed; if they are taken more often that prescribed they will not be refilled early and in most cases will not be refilled at all. > When a refill is needed,you should contact aman adams 2-3 business days before your prescription runs out. Medications will NOT be refilled by environmental health safety engineer providers after hours! > Many pain medications contain Tylenol (Acetaminophen). Do not consume more than 4,000 mg of Tylenol per day in total with any combination ofmedications. > Pain medications can cause constipation. Please use an over the counter stool softener as directed, while taking pain medications. Consulty our local pharmacist with questions or recommendations on stool softeners. If constipation persists, contact our office or your primary care provider. > While under our care,you are not to receive pain medications or other controlled substances from any other provider unless our office is notified and approves. Any attempts to do so will result in refusal to prescribe any further pain medications and possible dismissal from our practice. ? KEEP DRESSING ON AT ALL TIMES ? Showering is permitted, however we ask that you do not take a bath, sit in a whirlpool / Jacuzzi, or go swimming for 1 month. For only the first 2 days after surgery, lt wilt be necessary for you to cover your wound/dressing with plastic and tape to keep it dry. ? Walking is essential for the healing process after surgery. We would like you to slowly advance your walking. This should be done on relatively flat clear ground (inside or out) or can be done on a treadmill. Remember this goal does not have to happen all at once, slowly increase your distance and duration. This can be broken into more more than one walk per day as tolerated. Patients who walk as directed after surgery rarely require Physical Therapy. In the unlikely event this issue arises your provider will direct hospital staff to make the appropriate arrangements. ? No lifting over 5 pounds {a gallon of milk) or bending/twisting until further notice. Each of these activities places an unnecessary amount of stress onto the body and can impede the delicate healing process. > Instead of bending at the waist, keep your back straight and bend at the knees. > Instead of twisting your torso, keep your back straight and turn your entire body with your feet. ? You may sleep in any position which makes you comfortable. Many patients find comfort sleeping in a reclining chair. It is not abnormal to have difficulty sleeping for the first several weeks following your surgery. We recommend trying Benadry! or Tylenol PM as directed to help with your sleeping difficulties. Both medications are over the counter and available withoutprescription. ? NO SMOKING!!! Smoking dramatically increases the probability of developing postoperative wound infections. ? Common complaints after lumbar and/or thoracic spine surgery include, but are not limited to: numbness and/or tingling in the legs, pain around the incision and surrounding tissues, muscle spasms, or stiffness of the middle to low back. Contact our office if these symptoms persist or if an acute change occurs. ? No driving for the first 3-5days, and not while taking narcotics until seen at your follow-up appointment and cleared. There are no restrictions for riding on short trips, however if you take a longer trip, arrangements should be made to make regular stops to get out of the vehicle and stretch . ? Swelling is an unfortunate event that will take place with any surgery and is the primary source of your postoperative discomfort. While walking and regular approved activities helps control inflammation, there are additional steps you can take to minimizeswelling. > Place ice over the surgical site and surrounding tissue for twenty minutes, followed by applying a low/medium heat (heating pad) for an additional twenty minutes every 1-2 hours as needed for painrelief. > You may use of over the counter anti-inflammatory medications (Ibuprofen, Motrin, Aleve, Advil, etc) as directed on the package label. These types of medicines wm significantly reduce the amount of discomfort you experience after surgery from swelling. It should be noted that if you have and allergy to any of these medications, or a history of ulcers or kidney disease you should consult you primary care provider prior to starting these medications. Discharge Attestations Time Spent in Discharge Care*: less than 30 min Quality Metrics Clinical Quality Measures During this hospital stay, did patient experience: None Coding Level of Care Code Acute [facility] MELISSA note Diagnoses Lumbar radiculopathy M54.16
[2020-10-19 10:16] VITALS: BP 130/57; PULSE 99; RESP 16; TEMP 36.7; O2SAT 96
--- NOTE | 2020-10-19 10:55 | PC.CHAP ---
Pastoral Care Encounter/Spiritual Assessment Type of Contact [] Declined full time visit [] Patient/Family/Request visit [] Outpatient visit [] Follow-up visit [] Physician referral [] Code/Alert [x] Routine visit [] Staff referral [] Actively dying [] Patient sleeping [] Family support [] [] Out of room [] Palliative care [] [] Receiving care in room [] Pre-surgical visit [] Trauma [] Long length of stay [] ICU visit [] Other: Relational/Emotional Strength [] Patient feels connected with others/family/visitors/staff [] Distress [] Loneliness/isolation [] Abandonment Spirituality of Patient [] Person of Jessica [] Attends Confucianism of their Jessica [] Believes in Prayer [] Reads Bible or Jewish materials [] There are Spiritual issues to be addressed Occupational Therapy Co Director Interventions [] Prayer [] Active listening [] Non-anxious presence [] Spiritual/emotional support [] Crisis/trauma care [] Spiritual counseling [] Bereavement support [] Provided bereavement packet [] Provided Bible/devotional materials [] Provided toy/stuffed animal, coloring book to patient or family member [] Provided Communion [] Anointing/[place] [] Salvation [] Completed spiritual assessment [] Other: Impact on Illness or Injury [] Angry [] Fearful [] Anxious [] Often cries [] Exhaustion [] Unable to work [] Unable to attend mandaeism [] Unable to walk/stand [] Unable to read [] Unable to drive [] Unable to eat/drink [] Unable to sleep [] Unable to be with family [] Patient intubated [] Other: Summary Time spent with patient
[2020-10-19 11:14] VITALS: BP 99/62; PULSE 81; RESP 16; TEMP 37.3; O2SAT 96
--- NOTE | 2020-10-22 14:51 | PC.SOCIAL ---
discharge follow up call made. scheduled patient for earliest appointment available with Dr. De La Rosa. patient is taking hydrocodone as prescribed and taking a stool softner. patient is aware of dressing change instructions and lifting restrictions.
== END 2020-10-19 13:20 | disposition home or self-care (01) | DRG 460 ==
LOC: MEDSURG 17:28
PROVIDERS: Admitting Provider Orthopaedic Surgery; PCP Nurse Practitioner Family; Visit Provider Orthopaedic Surgery
PROC: 0SG0071 Fusion of Lumbar Vertebral Joint with Autologous Tissue Substitute, Posterior Approach, Posterior Column, Open Approach (ICD-10-PCS; CPT 22612; principal; 2020-10-18 12:00)
DX: M48.061 Spinal stenosis, lumbar region without neurogenic claudication (principal); M54.16 Radiculopathy, lumbar region; Z86.59 Personal history of other mental and behavioral disorders; Z83.3 Family history of diabetes mellitus
CPT/HCPCS: 51702; 72020; 76000; 96365; 96372; 97116; 97161; C1713; C9359; J0690; J1100; J1170; J1650; J2250; J2405; J2704; J3010; J3490; J7030

== ENCOUNTER → 2020-11-15 09:09 | Outpatient (BNVA) | payer MEDICAID, SELFPAY | PROVIDERS: PCP Nurse Practitioner Family; Visit Provider Anesthesiology Pain Medicine | DX: G89.29 Other chronic pain (principal); M54.16 Radiculopathy, lumbar region; M51.36 Other intervertebral disc degeneration, lumbar region; M47.816 Spondylosis without myelopathy or radiculopathy, lumbar region; M54.12 Radiculopathy, cervical region; M79.604 Pain in right leg; M79.605 Pain in left leg; Z79.891 Long term (current) use of opiate analgesic | CPT/HCPCS: 99213 ==

== ENCOUNTER → 2020-11-28 08:54 | Outpatient (BNVA) | payer MEDICAID, SELFPAY | PROVIDERS: PCP Nurse Practitioner Family; Visit Provider Orthopaedic Surgery | DX: Z48.89 Encounter for other specified surgical aftercare (principal) | CPT/HCPCS: 72100 ==

== ENCOUNTER → 2020-12-12 10:09 | Outpatient (BNVA) | payer MEDICAID, SELFPAY | PROVIDERS: PCP Nurse Practitioner Family; Visit Provider Anesthesiology Pain Medicine | DX: G89.29 Other chronic pain (principal); M51.36 Other intervertebral disc degeneration, lumbar region; M47.816 Spondylosis without myelopathy or radiculopathy, lumbar region; M54.16 Radiculopathy, lumbar region; M54.12 Radiculopathy, cervical region; M79.604 Pain in right leg; M79.605 Pain in left leg; Z79.891 Long term (current) use of opiate analgesic | CPT/HCPCS: 99214 ==

== ENCOUNTER → 2021-01-02 13:34 | Outpatient (BNVA) | payer MEDICAID, SELFPAY | PROVIDERS: PCP Nurse Practitioner Family; Visit Provider Anesthesiology Pain Medicine | DX: G89.29 Other chronic pain (principal); M51.36 Other intervertebral disc degeneration, lumbar region; M54.12 Radiculopathy, cervical region; M54.16 Radiculopathy, lumbar region; M47.816 Spondylosis without myelopathy or radiculopathy, lumbar region; Z79.891 Long term (current) use of opiate analgesic | CPT/HCPCS: 99214 ==

== ENCOUNTER → 2021-01-07 15:11 | Outpatient (BNVA) | payer MEDICAID, SELFPAY | PROVIDERS: PCP Nurse Practitioner Family; Visit Provider Orthopaedic Surgery | DX: M51.36 Other intervertebral disc degeneration, lumbar region (principal); M54.16 Radiculopathy, lumbar region; Z48.89 Encounter for other specified surgical aftercare | CPT/HCPCS: 72100 ==

== ENCOUNTER → 2021-01-30 13:41 | Outpatient (BNVA) | payer MEDICAID, SELFPAY | PROVIDERS: PCP Nurse Practitioner Family; Visit Provider Anesthesiology Pain Medicine | DX: G89.29 Other chronic pain (principal); M51.36 Other intervertebral disc degeneration, lumbar region; M47.816 Spondylosis without myelopathy or radiculopathy, lumbar region; M54.16 Radiculopathy, lumbar region; M54.12 Radiculopathy, cervical region; M79.604 Pain in right leg; M79.605 Pain in left leg; Z79.891 Long term (current) use of opiate analgesic | CPT/HCPCS: 99214 ==

== ENCOUNTER → 2021-02-25 10:39 | Outpatient (BNVA) | payer MEDICAID, SELFPAY | PROVIDERS: PCP Nurse Practitioner Family; Visit Provider Anesthesiology Pain Medicine | DX: G89.29 Other chronic pain (principal); M51.36 Other intervertebral disc degeneration, lumbar region; M47.816 Spondylosis without myelopathy or radiculopathy, lumbar region; M54.16 Radiculopathy, lumbar region; M54.12 Radiculopathy, cervical region; M79.604 Pain in right leg; M79.605 Pain in left leg; M77.11 Lateral epicondylitis, right elbow; M77.12 Lateral epicondylitis, left elbow; Z79.891 Long term (current) use of opiate analgesic | CPT/HCPCS: 99214 ==

== ENCOUNTER → 2021-03-24 09:52 | Outpatient (BNVA) | payer MEDICAID, SELFPAY | PROVIDERS: PCP Nurse Practitioner Family; Visit Provider Anesthesiology Pain Medicine | DX: G89.29 Other chronic pain (principal); M51.36 Other intervertebral disc degeneration, lumbar region; M47.816 Spondylosis without myelopathy or radiculopathy, lumbar region; M54.16 Radiculopathy, lumbar region; M54.12 Radiculopathy, cervical region; M79.604 Pain in right leg; M79.605 Pain in left leg; Z79.891 Long term (current) use of opiate analgesic | CPT/HCPCS: 99214 ==

== ENCOUNTER → 2021-04-15 09:25 | Outpatient (BNVA) | payer MEDICAID, SELFPAY | PROVIDERS: PCP Nurse Practitioner Family; Visit Provider Orthopaedic Surgery | DX: Z48.89 Encounter for other specified surgical aftercare (principal); M51.36 Other intervertebral disc degeneration, lumbar region; M54.16 Radiculopathy, lumbar region | CPT/HCPCS: 72040; 72100 ==

== ENCOUNTER → 2021-04-24 10:43 | Outpatient (BNVA) | payer MEDICAID, SELFPAY | PROVIDERS: PCP Nurse Practitioner Family; Visit Provider Anesthesiology Pain Medicine | DX: G89.29 Other chronic pain (principal); M54.16 Radiculopathy, lumbar region; M51.36 Other intervertebral disc degeneration, lumbar region; M47.816 Spondylosis without myelopathy or radiculopathy, lumbar region; M54.12 Radiculopathy, cervical region; M79.604 Pain in right leg; M79.605 Pain in left leg; Z79.891 Long term (current) use of opiate analgesic | CPT/HCPCS: 99214 ==

== ENCOUNTER → 2021-05-22 10:32 | Outpatient (BNVA) | payer MEDICAID, SELFPAY | PROVIDERS: PCP Nurse Practitioner Family; Visit Provider Anesthesiology Pain Medicine | DX: G89.29 Other chronic pain (principal); M54.16 Radiculopathy, lumbar region; M51.36 Other intervertebral disc degeneration, lumbar region; M47.816 Spondylosis without myelopathy or radiculopathy, lumbar region; M54.12 Radiculopathy, cervical region; M79.604 Pain in right leg; M79.605 Pain in left leg; F41.9 Anxiety disorder, unspecified; F32.A Depression, unspecified; Z79.891 Long term (current) use of opiate analgesic; Z47.89 Encounter for other orthopedic aftercare; Z98.890 Other specified postprocedural states; Z98.1 Arthrodesis status | CPT/HCPCS: 72040; 72100; 99213; 99214; 99999 ==

== ENCOUNTER → 2021-05-29 09:31 | Outpatient (BNVA) | payer MEDICAID, SELFPAY | PROVIDERS: PCP Nurse Practitioner Family; Visit Provider Social Worker | DX: F33.2 Major depressive disorder, recurrent severe without psychotic features (principal); F43.12 Post-traumatic stress disorder, chronic | CPT/HCPCS: 90791 ==

== ENCOUNTER → 2021-06-19 10:35 | Outpatient (BNVA) | payer MEDICAID, SELFPAY | PROVIDERS: PCP Nurse Practitioner Family; Visit Provider Anesthesiology Pain Medicine | DX: G89.29 Other chronic pain (principal); M51.36 Other intervertebral disc degeneration, lumbar region; M47.816 Spondylosis without myelopathy or radiculopathy, lumbar region; M54.16 Radiculopathy, lumbar region; M54.12 Radiculopathy, cervical region; F41.9 Anxiety disorder, unspecified; F32.A Depression, unspecified; M25.9 Joint disorder, unspecified; M79.604 Pain in right leg; M79.605 Pain in left leg; Z79.891 Long term (current) use of opiate analgesic | CPT/HCPCS: 99214 ==

== ENCOUNTER → 2021-06-27 08:54 | Outpatient (BNVA) | payer MEDICAID, SELFPAY | PROVIDERS: PCP Nurse Practitioner Family; Referring Provider Anesthesiology Pain Medicine; Visit Provider Orthopaedic Surgery | DX: M77.11 Lateral epicondylitis, right elbow (principal); M77.12 Lateral epicondylitis, left elbow; R20.0 Anesthesia of skin; R20.2 Paresthesia of skin; M25.9 Joint disorder, unspecified | CPT/HCPCS: 73080; 99203; 99204 ==

== ENCOUNTER → 2021-07-21 08:43 | Outpatient (BNVA) | payer MEDICAID, SELFPAY | PROVIDERS: PCP Nurse Practitioner Family; Visit Provider Anesthesiology Pain Medicine | DX: G89.29 Other chronic pain (principal); M51.36 Other intervertebral disc degeneration, lumbar region; M47.816 Spondylosis without myelopathy or radiculopathy, lumbar region; M54.16 Radiculopathy, lumbar region; M54.12 Radiculopathy, cervical region; F41.9 Anxiety disorder, unspecified; F32.A Depression, unspecified; M79.604 Pain in right leg; M79.605 Pain in left leg; Z79.891 Long term (current) use of opiate analgesic | CPT/HCPCS: 99214 ==

== ENCOUNTER → 2021-08-13 10:52 | Outpatient (BNVA) | payer MEDICAID, SELFPAY | PROVIDERS: PCP Nurse Practitioner Family; Visit Provider Anesthesiology Pain Medicine | DX: G89.29 Other chronic pain (principal); M51.36 Other intervertebral disc degeneration, lumbar region; M47.816 Spondylosis without myelopathy or radiculopathy, lumbar region; M51.17 Intervertebral disc disorders with radiculopathy, lumbosacral region; M54.2 Cervicalgia; M79.604 Pain in right leg; M79.605 Pain in left leg; F41.9 Anxiety disorder, unspecified; Z79.891 Long term (current) use of opiate analgesic | CPT/HCPCS: 99214 ==

== ENCOUNTER → 2021-09-09 08:57 | Outpatient (BNVA) | payer MEDICAID, SELFPAY | PROVIDERS: PCP Nurse Practitioner Family; Referring Provider Orthopaedic Surgery; Visit Provider Specialist | DX: G89.29 Other chronic pain (principal); M51.17 Intervertebral disc disorders with radiculopathy, lumbosacral region; M51.36 Other intervertebral disc degeneration, lumbar region; M47.816 Spondylosis without myelopathy or radiculopathy, lumbar region; M54.2 Cervicalgia; F41.9 Anxiety disorder, unspecified; F32.A Depression, unspecified; M79.604 Pain in right leg; M79.605 Pain in left leg; Z79.891 Long term (current) use of opiate analgesic; G56.01 Carpal tunnel syndrome, right upper limb | CPT/HCPCS: 95910; 95912; 99214 ==

== ENCOUNTER → 2021-10-08 10:06 | Outpatient (BNVA) | payer MEDICAID, SELFPAY | PROVIDERS: PCP Nurse Practitioner Family; Visit Provider Anesthesiology Pain Medicine | DX: G89.29 Other chronic pain; M51.36 Other intervertebral disc degeneration, lumbar region; M47.816 Spondylosis without myelopathy or radiculopathy, lumbar region; M51.17 Intervertebral disc disorders with radiculopathy, lumbosacral region; M54.2 Cervicalgia; F41.9 Anxiety disorder, unspecified; F32.A Depression, unspecified; M79.604 Pain in right leg; M79.605 Pain in left leg; Z79.891 Long term (current) use of opiate analgesic | CPT/HCPCS: 99214 ==

== ENCOUNTER → 2021-10-30 10:03 | Outpatient (BNVA) | payer MEDICAID, SELFPAY | PROVIDERS: PCP Nurse Practitioner Family; Visit Provider Physician Assistant | DX: Z98.1 Arthrodesis status (principal) | CPT/HCPCS: 72100 ==

== ENCOUNTER 2022-01-15 09:37 | Outpatient (CLI) | payer MEDICAID, SELFPAY ==
--- NOTE | 2022-01-15 10:15 | MR_ITS ---
WS: [id number] MRI CERVICAL SPINE NONCONTRAST HISTORY: M54.12 - Radiculopathy, cervical region, neck pain with numbness in hands. COMPARISON: 03/19/2020. Technique: Multiplanar, multisequence noncontrast imaging of the cervical spine. Interval anterior cervical fusion from C5 to C7 with interbody spacers at C5-6 and C6-7. Previously d escribed stenosis at C5-6 has resolved. No longer disc contact on the cord or osteophyte contact on t he cord. Posterior alignment is normal. Signal within the cord is normal. Craniocervical junction, C1 and C2 relationship, odontoid process and soft tissues are normal. C2-C3: Mild osteophytic ridging. No stenosis. C3-C4: Mild osteophytic ridging and mild encroachment into the RIGHT foramen. No significant stenosis . C4-C5: Mild osteophytic ridging. No stenosis. Very minimal facet arthritis. C5-C6: Mild osteophytic ridging. Small bilateral foraminal osteophytes, LEFT greater than RIGHT. Only mild bilateral foraminal encroachment. Mild bilateral facet joint arthritis with a small amount of f luid in the facet joints. C6-C7: Mild osteophytic ridging and facet arthritis. Very mild foraminal narrowing. C7-T1: Normal. Paraspinal soft tissue are normal. MR/MR cervical spin wo con* [id number] IMPRESSION: 1. Status post anterior cervical fusion with interbody spacers from C5 to C7 s eileen 03/19/2020. No complications are evident. 2. No significant central or foraminal stenosis. 3. Small vertebral body osteophytes at C5-6 radius on the LEFT with mild encro achment into the foramina. 4. No cord edema.
== END 2022-01-15 09:38 | disposition home or self-care (01) ==
LOC: RAD 09:38
PROVIDERS: PCP Nurse Practitioner Family; Visit Provider Anesthesiology Pain Medicine
DX: M54.12 Radiculopathy, cervical region (principal); M25.78 Osteophyte, vertebrae
CPT/HCPCS: 72141

== ENCOUNTER 2022-08-04 11:27 | Outpatient (CLI) | payer MEDICAID, SELFPAY ==
--- NOTE | 2022-08-04 11:32 | XR_ITS ---
WS: [id number] EXAMINATION: XR cervical spine 3V* [id number] REASON FOR EXAM: M54.2 - Cervicalgia COMPARISON: 05/22/2021 FINDINGS: Anterior plate and screw fixation interbody fusion devices at C5-C7. Surgical appliances and cervical spine are in proper position and alignment with no change compared to 04/15/2021. Degenerative change in the C7-T1 facet joints. XR/XR cervical spine 3V* [id number] IMPRESSION: Stable postsurgical cervical spine.
== END 2022-08-04 11:28 | disposition home or self-care (01) ==
LOC: RAD 11:29
PROVIDERS: PCP Nurse Practitioner Family; Visit Provider Nurse Practitioner Family
DX: M54.2 Cervicalgia (principal); Z98.890 Other specified postprocedural states; Z98.1 Arthrodesis status
CPT/HCPCS: 72040

== ENCOUNTER 2022-09-15 14:50 | Outpatient (CLI) | payer MEDICAID, SELFPAY ==
--- NOTE | 2022-09-15 15:15 | MR_ITS ---
WS: [id number] MRI CERVICAL SPINE NONCONTRAST TECHNIQUE: Sagittal T1, T2 and STIR imaging. Axial T2, gradient, and fiesta imaging. Patient refused gadolinium contrast CLINICAL INFORMATION: M54.12 - Radiculopathy, cervical region COMPARISON: None. FINDINGS: Straightening of the normal cervical lordosis. Prior postoperative changes ACDF C5-C7. C2-C3: Mild RIGHT foraminal narrowing. Mild facet arthropathy. C3-C4: Mild disc bulging with osteophytic ridging. Spinal canal is patent. Mild RIGHT and no signific ant LEFT foraminal narrowing. Mild facet arthropathy. C4-C5: Mild disc osteophytic ridging. Mild bilateral bony foraminal narrowing. Mild facet arthropathy . Slight retrolisthesis C4 on C5 appears slightly progressed. C5-C6: Postoperative ACDF. Moderate LEFT and mild RIGHT bony foraminal narrowing. Mild facet arthropa thy. C6-C7: Postoperative ACDF. Moderate LEFT greater than RIGHT bony foraminal narrowing. Mild facet arth ropathy. C7-T1: LEFT eccentric disc osteophytic ridging. Moderate LEFT and no significant RIGHT foraminal narr owing. Spinal canal is patent. Visualized brain stem structures: Normal. Prevertebral soft tissues: Normal. MR/MR cervical spin wo con* [id number] IMPRESSION: 1. Straightening of the normal cervical lordosis. ACDF C5-C7. 2. Cord signal is normal. 3. Multilevel moderate bony foraminal narrowing worse at bilateral C5-C6, bila teral C6-C7 and LEFT C7-T1. This appears unchanged from previous. 4. Slight retrolisthesis C4 on C5 appears slightly progressed with progressed mild RIGHT C4-C5 bony foraminal narrowing. Stable LEFT mild bony foraminal narr owing. 5. Cord signal is normal. 6. No other significant changes since January 15, 2022
== END 2022-09-15 14:51 | disposition home or self-care (01) ==
PROVIDERS: PCP Nurse Practitioner Family; Visit Provider Nurse Practitioner Family
DX: M54.12 Radiculopathy, cervical region (principal)
CPT/HCPCS: 72141

== ENCOUNTER → 2022-10-08 15:29 | Outpatient (BNVA) | payer MEDICAID, SELFPAY | PROVIDERS: PCP Nurse Practitioner Family; Visit Provider Orthopaedic Surgery | DX: M54.12 Radiculopathy, cervical region (principal); G89.29 Other chronic pain; Z98.1 Arthrodesis status | CPT/HCPCS: 72050 ==

== ENCOUNTER 2022-12-23 06:41 | Day surgery (SDC) | payer MEDICAID, SELFPAY ==
[2022-12-23 07:00] VITALS: BP 135/100; PULSE 82; RESP 16; TEMP 36.2; O2SAT 99; BMI 31.2
[2022-12-23] MEDS: sodium chloride 0.9% 1,000 ML 30 ML IV (07:13)
[2022-12-23] MEDS: ketorolac 30 mg/mL INJ IVP (07:14)
[2022-12-23] MEDS: acetaminophen 1,000 MG/100 ML PIGGYBACK 400 MG IV (07:14)
--- NOTE | 2022-12-23 08:05 | ANES.PREANE2 ---
Pre-Anesthetic Assessment Height/Weight: Height 1.78 m Weight 98.883 kg Temp Pulse Resp BP Pulse Ox O2 Del Method 97.2 F L 82 16 135/100 99 Room Air 12/23/22 07:00 12/23/22 07:00 12/23/22 07:00 12/23/22 07:00 12/23/22 07:00 12/23/22 07:00 Preop Diagnosis: right carpal tunnel syndrome Operation Date: 12/23/22 08:35 Proposed Procedures p Right Carpal Tunnel Release(Right) - Rod Alarcon DO Familial anesthetic complications: none Was Beta Leon taken within 24 hours: N/A Was Clonidine taken within 24 hours: N/A Last intake: Intake Last Liquid Date 12/22/22 Last Liquid Time 22:00 Last Solid Date 12/22/22 Last Solid Time 22:00 Social No alcohol and No tobacco Exam alert, oriented x 3, clear to auscultation bilaterally and regular rate & rhythm Airway Submandibular: within normal limits Cervical ROM: within normal limits Mallampati: Class II Dentition: chipped Musc/skel Osteoarthritis/DJD Neuropsych Anxiety and Depression Anesthetic Plan ASA status: 2 Anesthesia: MAC Medications/Allergies Home Medications Medication Instructions Recorded Confirmed Last Taken Type multivitamin 1 tab PO DAILY 10/08/21 12/22/22 Unknown History bupropion HCl 300 mg 24 hr tablet, 300 mg PO QAM #30 tabs 12/01/22 12/22/22 12/22/22 Rx extended release (Wellbutrin XL) Allergies Allergy/AdvReac Type Severity Reaction Status Date / Time quetiapine [From Seroquel] Allergy ADR-Chest Verified 12/23/22 06:57 Pain tramadol Allergy increased Verified 12/23/22 06:57 pain amitriptyline AdvReac Severe ALGY-Anaphy Verified 12/23/22 06:57 laxis methocarbamol AdvReac ADR-Agitate Verified 12/23/22 06:57 d Current Medications Generic Name Dose Route Start Last Admin Trade Name Freq PRN Reason Stop Dose Admin Sodium Chloride 1,000 mls @ 30 mls/hr 12/23/22 07:00 12/23/22 07:13 Sodium Chloride 0.9% IV 12/24/22 06:59 30 mls/hr .Q24H VANE Administration PFSH Anesthesia Medical History Anxiety 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 De La Rosa Family History Mother Diabetes Social History Smoking and tobacco/nicotine status: never used tobacco/nicotine Second hand smoke exposure: No Alcohol intake: never Substance/Drug Use: never Lives independently: Yes Data Anesthesia Cardiac Studies: No Data to Display
--- NOTE | 2022-12-23 08:41 | W.PM.OPSUD ---
Surgery/Procedure H&P Update DATE OF PROCEDURE: December 23, 2022 DATE H&P PERFORMED: 11/26/22 H&P UPDATE INFORMATION: I have reviewed H&P completed within last 30 days, I have examined patient prior to procedure and No changes to prior documentation PREOP DIAGNOSIS: right carpal tunnel syndrome PRIMARY INDICATION FOR PROCEDURE: Right carpal tunnel syndrome PLANNED PROCEDURE: Operation Date: 12/23/22 08:35 Proposed Procedures p Right Carpal Tunnel Release(Right) - Rod Alarcon DO
[2022-12-23] MEDS: ceFAZolin 2,000 MG in sodium chloride 0.9% (plus) 50 ML 100 MG IV (08:55)
[2022-12-23] MEDS: lidocaine-epi 2% 20 mL INJ 5 ML INJECTION (09:29)
[2022-12-23] MEDS: ROPivacaine 0.5% SDV 30 mL 5 MG INJECTION (09:30)
--- NOTE | 2022-12-23 09:31 | P.BOP_ITS ---
Date of Procedure: 12/23/2022 Surgeon: Rod Alarcon DO Executive Office Manager(s): Navarro Alarcon PA-C Procedure(s) performed: Right carpal tunnel release Findings of the procedure(s): Right carpal tunnel syndrome, procedure went as planned with a right carpal tunnel release without complications. Estimated blood loss: 1 cc Specimen(s) removed: None Post-operative diagnosis: Right carpal tunnel syndrome
--- NOTE | 2022-12-23 09:32 | PM.OP ---
Operative Report Date of procedure: December 23, 2022 Surgeon: Rod Alarcon DO Fixture Builder: Navarro Alarcon PA-C: PA was necessary for assistance in this case with retraction and protection of neurovascular structures as well as execution of this procedure and skin closure Procedure: Preoperative diagnosis: Right carpal tunnel syndrome post-op diagnosis: Same Procedure done: 1.?Right?carpal?tunnel?release Surgeon: Rod Alarcon DO Anesthesia: MAC (Local) Estimated blood loss: 1 mL Tourniquet time 8 minutes IV fluids: See anesthesia record Complications: None Findings: See operative report narrative Condition: stable Disposition: same day Brief History: Patient is a pleasant 42 year-old male with?right?carpal?tunnel?syndrome.? Patient has been worked up in the outpatient setting findings and physical examination consistent with this.? Patient nerve conduction studies consistent with?carpal?tunnel?syndrome.? We detailed out patient's risk benefits complication alternatives with surgical and nonsurgical treatment options. Through shared decision making, patient agrees to proceed with surgical intervention of the left?carpal?tunnel?release .? Patient understands and agrees with current plan.? All questions answered.? Patient elects to proceed with surgical intervention with?carpal?tunnel?release. Procedure: Patient seen and evaluated in the preoperative holding area.? Consent was reviewed and signed with patient.? Correct extremity was marked.? Patient was seen evaluated by the anesthesia department once cleared for surgery was brought back to the operative suite.? Patient was kept on [facility] in supine position all bony prominences were well-padded patient properly secured to the bed.??Right?upper extremity was then placed onto an armboard.? A nonsterile tourniquet was applied to the?RIght?upper arm.? Patient underwent anesthesia per the anesthesia department.? Patient's?Right?upper extremity was then prepped and draped in standard orthopedic fashion.? Final timeout performed.? Patient received appropriate preoperative antibiotics. Under sterile aseptic technique patient received local anesthesia over the preplanned?carpal?tunnel?incision site. Esmarch was used to exsanguinate the?Right?upper extremity and tourniquet was insufflated to 250 mmHg. A standard mini open?Right?carpal?tunnel?incision was made.? Starting distally at [place]'s cardinal line in line with the fourth ray extending proximally distal to the wrist crease centered over the?carpal?tunnel.? Sharp scalpel incision was made through skin and subcutaneous tissue.? Self-retaining retractor was placed and the palmar fascia was identified.? This was then split longitudinally and direct visualization of the transverse?carpal?ligament was then made.? I then utilizing scalpel feathered through the transverse?carpal?ligament until I entered the floor of the transverse?carpal?tunnel?ligament into the?carpal?tunnel.? Next I switched to dissection scissors and completed my release of the transverse?carpal?ligament distally with care to protect the recurrent motor branch.? I completely released into the palmar fat and until no entrapment was noted distally.? Care was made to protect the superficial palmar arch during my distal dissection.?? Next I utilized a nasal speculum placed on top of the transverse?carpal?ligament and utilize this to retract the subcutaneous fat and tissue and under direct loupe magnification was able to identify the transverse?carpal?ligament.? Next I then placed a [place] underneath the transverse?carpal?tunnel?ligament to protect the contents of the?carpal?tunnel?and subsequently utilizing dissection scissors under loupe magnification completely released the transverse?carpal?ligament proximally into the median antebrachial fascia.? Care was made to protect the palmar cutaneous branch by keeping my scissors curved ulnarly.? Once completely released, I then placed my [place] and had appropriate decompression of the?carpal?tunnel?proximally as well as distally.? I then inspected the contents of the?carpal?tunnel?which showed an hourglass shape of the median nerve showing its compression.? No masses were noted.? Tendons appeared healthy.? Wound was then thoroughly irrigated.? Tourniquet deflated.? Hemostasis satisfactory with bipolar electrocautery.? I then closed the incision with interrupted nylon stitches.? Xeroform 4 x 4's and a bulky soft dressing was applied.? Patient was then awakened from anesthesia and taken to PACU in stable condition.? Patient tolerated procedure without complications. Disposition: Patient taken to PACU in stable condition recovering well.? Dressing clean dry and intact.? Patient will receive appropriate discharge instructions as well as pain medication postoperatively.? Patient to follow-up with me in the office in 2 weeks.? They understand they may be weightbearing as tolerated to the?right?hand.? Patient should keep incision clean dry and intact.? Patient understands if any questions or concerns may contact the office.
[2022-12-23 09:41] VITALS: BP 102/79; PULSE 95; RESP 16; TEMP 36.1; O2SAT 97
[2022-12-23 09:45] VITALS: BP 108/78; PULSE 100; RESP 16; O2SAT 98
[2022-12-23 09:50] VITALS: BP 127/67; PULSE 99; RESP 16; O2SAT 97
--- NOTE | 2022-12-23 09:51 | P.PCN_ITS ---
PACU note Narrative: Patient is a 42-year-old male that just underwent right carpal tunnel release. Patient transferred to PACU in stable condition. Pain is well controlled. Dressing on hand is dry and in place. Patient's fingers are warm and well- perfused. Patient can wiggle fingers. normal cap refill under 2 seconds. Patient has normal elbow range of motion. Unable to assess sensation due to residual localized anesthetic. Exam: awake Disposition: discharged
[2022-12-23 09:59] VITALS: BP 116/78; PULSE 91; RESP 16; TEMP 37.1; O2SAT 97
[2022-12-23 10:11] VITALS: BP 126/92; PULSE 87; RESP 16; TEMP 36.6; O2SAT 98
--- NOTE | 2022-12-23 17:38 | ANE.PACU2 ---
Inpatient post-anesthesia follow up: Airway intact: Yes Vital signs: Temperature 97.8 F Pulse Rate 87 Respiratory Rate 16 Blood Pressure 126/92 Pulse Oximetry 98 Oxygen Delivery Me thod Room Air Oxygen Flow Rate 6 Fraction of Inspir ed Oxygen Hydration adequate: Yes Nausea and vomiting: No Pain level: 2 Mental status: Baseline
== END 2022-12-23 10:25 | disposition home or self-care (01) ==
PROVIDERS: PCP Nurse Practitioner Family; Visit Provider Student in an Organized Health Care Education/Training Program
PROC: (CPT 64721; principal; 2022-12-23 08:25)
DX: G56.01 Carpal tunnel syndrome, right upper limb (principal)
CPT/HCPCS: 64721; J0131; J0690; J1885; J2250; J2704; J2795; J7030

== ENCOUNTER 2023-01-13 09:29 | Day surgery (SDC) | payer MEDICAID, SELFPAY ==
[2023-01-13] VITALS (7 sets, daily range): BP systolic 118–138; BP diastolic 80–97; PULSE 84–99; RESP 12–18; TEMP 36.1–36.7; O2SAT 94–98; BMI 30.8
[2023-01-13] MEDS: acetaminophen 1,000 MG/100 ML PIGGYBACK 400 MG IV (10:15)
[2023-01-13] MEDS: ketorolac 30 mg/mL INJ IVP (10:16)
[2023-01-13] MEDS: sodium chloride 0.9% 1,000 ML 30 ML IV (10:25)
--- NOTE | 2023-01-13 11:57 | W.PM.OPSUD ---
Surgery/Procedure H&P Update DATE OF PROCEDURE: January 13, 2023 DATE H&P PERFORMED: 01/12/23 H&P UPDATE INFORMATION: I have reviewed H&P completed within last 30 days, I have examined patient prior to procedure and No changes to prior documentation PREOP DIAGNOSIS: Left carpal tunnel syndrome PRIMARY INDICATION FOR PROCEDURE: Left carpal tunnel syndrome PLANNED PROCEDURE: Operation Date: 01/13/23 11:10 Proposed Procedures p Carpal Tunnel Release: Left carpal tunnel release(Left) - Rod Alarcon DO
--- NOTE | 2023-01-13 12:28 | ANES.PREANE2 ---
Pre-Anesthetic Assessment Height/Weight: Height 1.78 m Weight 97.522 kg Temp Pulse Resp BP Pulse Ox O2 Del Method 98.1 F 98 16 138/97 98 Room Air 01/13/23 09:53 01/13/23 09:53 01/13/23 09:53 01/13/23 09:53 01/13/23 09:53 01/13/23 09:53 Preop Diagnosis: Left carpal tunnel syndrome Operation Date: 01/13/23 11:10 Proposed Procedures p Carpal Tunnel Release: Left carpal tunnel release(Left) - Rod Alarcon, Familial anesthetic complications: None Was Beta Leon taken within 24 hours: N/A Was Clonidine taken within 24 hours: N/A Last intake: Intake Last Liquid Date 01/12/23 Last Liquid Time 20:30 Last Solid Date 01/12/23 Last Solid Time 21:30 Social No alcohol and No tobacco Exam alert, oriented x 3, clear to auscultation bilaterally and regular rate & rhythm Airway Mallampati: Class II Dentition: chipped History/ROS No significant complaints Neuropsych Neuropathy Anesthetic Plan ASA status: 2 Anesthesia: MAC Risk of > 500 ml blood loss (7ml/kg in children): No Medications/Allergies Home Medications Medication Instructions Recorded Confirmed Last Taken Type multivitamin 1 tab PO DAILY 10/08/21 01/12/23 Unknown History bupropion HCl 300 mg 24 hr tablet, 300 mg PO QAM #30 tabs 12/01/22 01/13/23 01/12/23 Rx extended release (Wellbutrin XL) ondansetron 4 mg disintegrating 4 mg PO Q8H PRN nausea and 01/13/23 Unknown Rx tablet vomiting 3 days #9 tabs Allergies Allergy/AdvReac Type Severity Reaction Status Date / Time quetiapine [From Seroquel] Allergy ADR-Chest Verified 01/13/23 09:51 Pain tramadol Allergy increased Verified 01/13/23 09:51 pain amitriptyline AdvReac Severe ALGY-Anaphy Verified 01/13/23 09:51 laxis methocarbamol AdvReac ADR-Agitate Verified 01/13/23 09:51 d Current Medications Generic Name Dose Route Start Last Admin Trade Name Freq PRN Reason Stop Dose Admin Sodium Chloride 1,000 mls @ 30 mls/hr 01/13/23 09:45 01/13/23 10:25 Sodium Chloride 0.9% IV 01/14/23 09:44 30 mls/hr .Q24H VANE Administration PFSH Anesthesia Medical History Insomnia due to medical condition Major depressive disorder, recurrent, moderate Lumbar pain with radiation down both legs PTSD (post-traumatic stress disorder) Anxiety Failed back syndrome of lumbar spine Surgical History Hx of neck surgery Dr. De La Rosa Hx of lumbosacral spine surgery Family History Mother Diabetes Social History Smoking and tobacco/nicotine status: never used tobacco/nicotine Second hand smoke exposure: No Alcohol intake: never Substance/Drug Use: never Lives independently: Yes Data Anesthesia Cardiac Studies: No Data to Display
[2023-01-13] MEDS: ceFAZolin 2,000 MG in sodium chloride 0.9% (plus) 50 ML 100 MG IV (13:00)
[2023-01-13] MEDS: lidocaine-epi 1% 20 mL INJ 5 ML INJECTION (13:28)
[2023-01-13] MEDS: ROPivacaine 0.5% SDV 30 mL 25 MG INJECTION (13:28)
--- NOTE | 2023-01-13 13:41 | P.BOP_ITS ---
Date of Procedure: [January 13, 2023] Surgeon: [Dr. Agnes THRASHER] Physician Industrial(s): [Navarro Alarcon physician associate] Procedure(s) performed: [Left carpal tunnel release] Findings of the procedure(s): [Left carpal tunnel syndrome] Estimated blood loss: [5 mL] Specimen(s) removed: [N/A] Post-operative diagnosis: [Left carpal tunnel syndrome]
--- NOTE | 2023-01-13 13:44 | P.PCN_ITS ---
PACU note Narrative: Patient is a 42-year-old male that just underwent a left carpal tunnel release. Patient transferred to PACU in stable condition. Pain is well controlled. Dressing on hand is dry and in place. Patient's fingers are warm and well- perfused. Patient can wiggle fingers. normal cap refill under 2 seconds. Patient has normal elbow range of motion. Unable to assess sensation due to residual localized anesthetic. Exam: awake Disposition: discharged
--- NOTE | 2023-01-13 14:41 | PM.OP ---
Operative Report Date of procedure: January 13, 2023 Surgeon: Rod Alarcon DO Advanced Practice Nurse Psychotherapist: Navarro Alarcon PA-C: PA was necessary for assistance in this case with hand positioning to execute the procedure, retraction and protection of neurovascular structures as well as to assist with wound closure and dressing application. Procedure: Preoperative diagnosis: Left carpal tunnel syndrome Post-op diagnosis: Same Procedure done: 1.?Left carpal tunnel release Surgeon: Rod Alarcon DO Anesthesia: MAC (Local) Estimated blood?loss: 5mL Tourniquet time [ 10minutes IV fluids: See anesthesia record Complications: None Findings: See operative report narrative Condition: stable Disposition: same day Brief History: Patient is a pleasant [42]year-old [male?with?left carpal tunnel syndrome.? Patient has been worked up in the outpatient setting findings and physical examination consistent with this.? Patient nerve?conduction studies consistent with carpal tunnel syndrome.? We detailed?out?patient's risk benefits complication alternatives with surgical and?nonsurgical treatment options. Through shared decision making, patient?agrees to proceed with surgical intervention of the?left carpal tunnel release .? Patient understands and agrees with current plan.? All questions answered.? Patient elects to proceed with surgical intervention with carpal tunnel release. Procedure: Patient seen and evaluated in the preoperative holding area.? Consent was reviewed and signed with patient.? Correct extremity was marked.? Patient was seen evaluated by the anesthesia department once cleared for surgery was brought back to the operative suite.? Patient was kept on [facility] in supine position all bony prominences were well-padded patient properly secured to the bed.??Left upper extremity was then placed onto an armboard.? A nonsterile tourniquet was applied to the?left upper arm.? Patient underwent anesthesia per the anesthesia department.? Patient's?left upper extremity was then prepped and draped in standard orthopedic fashion.? Final timeout performed.? Patient received appropriate preoperative antibiotics. Under sterile aseptic technique patient received?local anesthesia over the preplanned carpal tunnel incision site. Esmarch was used to exsanguinate the?left upper extremity and tourniquet was insufflated to 250 mmHg. A standard mini open?left carpal tunnel incision was made.? Starting distally at [place]'s cardinal?line in?line with the fourth ray extending proximally distal to the wrist crease centered over the carpal tunnel.? Sharp scalpel incision was made through skin and subcutaneous tissue.? Self-retaining retractor was placed and the palmar fascia was identified.? This was then split?longitudinally and direct visualization of the transverse carpal?ligament was then made.? I then utilizing scalpel feathered through the transverse carpal?ligament until I entered the floor of the transverse carpal tunnel?ligament into the carpal tunnel.? Next I switched to dissection scissors and completed my release of the transverse carpal?ligament distally with care to protect the recurrent motor branch.? I completely released into the palmar fat and until no entrapment was noted distally.? Care was made to protect the superficial palmar arch during my distal dissection. Nasal speculum was placed proximally to retract all subcutaneous fat directly visualization of the transverse carpal ligament was made. Next I then placed a [place] underneath the transverse carpal tunnel?ligament to protect the contents of the carpal tunnel and subsequently utilizing dissection scissors under?loupe magnification completely released the transverse carpal?ligament proximally into the antebrachial fascia.? Care was made to protect the palmar cutaneous branch by keeping my scissors curved ulnarly.? Once completely released, I then placed my [place] and had appropriate decompression of the carpal tunnel proximally as well as distally.? I then inspected the contents of the carpal tunnel which showed an hourglass shape of the median nerve showing its compression.? No masses were noted.? Tendons appeared healthy.? Wound was then thoroughly irrigated.? Tourniquet deflated.? Hemostasis satisfactory with bipolar electrocautery.? I then closed the incision with interrupted nylon stitches.? Xeroform 4 x 4's and a bulky soft dressing was applied to the?left upper extremity.? Patient was then awakened from anesthesia and taken to PACU in stable condition.? Patient tolerated procedure without complications. Disposition: Patient taken to PACU in stable condition recovering well.? Dressing clean dry and intact.? Patient will receive appropriate discharge instructions as well as pain medication postoperatively.? Patient to follow-up with me in the office in 2 weeks.? They understand they may be weightbearing as tolerated to the?left hand.? Patient should keep incision clean dry and intact.? Patient understands if any questions or concerns may contact the office.
== END 2023-01-13 14:35 | disposition home or self-care (01) ==
PROVIDERS: PCP Nurse Practitioner Family; Visit Provider Student in an Organized Health Care Education/Training Program
PROC: (CPT 64721; principal; 2023-01-13 11:00)
DX: G56.02 Carpal tunnel syndrome, left upper limb (principal)
CPT/HCPCS: 64721; J0131; J0690; J1885; J2704; J2795; J3010; J7030

== ENCOUNTER 2023-11-04 09:11 | Outpatient (CLI) | payer MEDICAID, SELFPAY ==
--- NOTE | 2023-11-04 09:14 | XR_ITS ---
WS: [id number] Cervical spine, 3 views, 11/04/2023 Clinical Data: M54.2 - Cervicalgia Comparison: Cervical spine, 10/08/2022 Findings: The anterior cervical disc fusion from C5-C7 remains at the same. There are disc spacers at C5-C6 and C6-C7. There is no prevertebral soft tissue swelling. There is a small spur at the anterio r inferior aspect of C4. No compression fractures are noted. The lung apices and soft tissues of the neck are normal. XR/XR cervical spine 3V* [id number] Impression: Stable anterior cervical disc fusion C5-C7.
--- NOTE | 2023-11-04 09:14 | XR_ITS ---
WS: [id number] Thoracic spine, AP and lateral views, 11/04/2023 Clinical Data: M51.36 - Other intervertebral disc degeneration, lumbar r... Comparison: None. Findings: No compression fractures are seen. The disc heights are normal. The paravertebral regions are unremarkable. The anterior cervical disc fusion is partly visualized at C7. XR/XR thoracic spine 3V* [id number] Impression: Negative thoracic spine.
--- NOTE | 2023-11-04 09:14 | XR_ITS ---
WS: [id number] Lumbar spine, 3 views, 11/04/2023 Clinical Data: M54.9 - Dorsalgia, unspecified Comparison: Lumbar spine, 10/30/2021 Findings: The posterior lumbosacral fusion from L4-S1 remains the same. There are bilateral pedicle screws and connecting rods. There are laminectomies at L4 and L5. There are artificial disc at L4-L5 and L5-S1. There is minimal anterior spurring at L3-L5. No compression fractures are seen. The transverse proces ses and SI joints are unremarkable. There is a slight dextroscoliosis of the lumbar spine. XR/XR lumbar spine 2-3V* [id number] Impression: Stable posterior lumbosacral fusion.
== END 2023-11-04 09:12 | disposition home or self-care (01) ==
LOC: RAD 09:12
PROVIDERS: PCP Nurse Practitioner Family; Visit Provider Nurse Practitioner Family
DX: M51.36 Other intervertebral disc degeneration, lumbar region (principal); M43.22 Fusion of spine, cervical region; M43.27 Fusion of spine, lumbosacral region; M54.9 Dorsalgia, unspecified; M54.2 Cervicalgia
CPT/HCPCS: 72040; 72072; 72100

== ENCOUNTER → 2023-11-25 14:05 | Outpatient (BNVA) | payer MEDICAID, SELFPAY | PROVIDERS: PCP Nurse Practitioner Family; Visit Provider Orthopaedic Surgery | DX: M54.9 Dorsalgia, unspecified (principal) | CPT/HCPCS: 72110 ==

== ENCOUNTER 2023-12-14 13:22 | Outpatient (CLI) | payer MEDICAID, SELFPAY ==
--- NOTE | 2023-12-14 13:45 | MR_ITS ---
WS: [id number] MRI LUMBAR SPINE NONCONTRAST TECHNIQUE: Sagittal T1, T2 and STIR imaging. Axial T1 and T2 imaging. CLINICAL INFORMATION: Back Pain COMPARISON: None. FINDINGS: Mild lumbar curve. No acute compression. Slight retrolisthesis L3 on L4 with mild disc bulging. Pedic le screw fixation L4-S1 with interbody fusion grafts. Laminectomy defects in the lower lumbar spine. Fusion is new compared to 2020. L1-L2: Mild facet arthropathy. Spinal canal and foramen are patent. L2-L3: Mild facet arthropathy. Spinal canal and foramen are patent. L3-L4: Slight retrolisthesis. Mild disc bulging with impingement LEFT subarticular recess and kaylie ing LEFT L4 nerve root. Mild to moderate central canal stenosis. This is progressed compared to previ ous. Mild LEFT greater than RIGHT foraminal narrowing. Moderate facet arthropathy. L4-L5: Pedicle screw fixation with interbody fusion. Mild LEFT and no significant RIGHT foraminal monique rowing. Moderate facet arthropathy. L5-S1: Pedicle screw fixation. Interbody fusion and laminectomy defects. Mild LEFT and no significant RIGHT foraminal narrowing. Visualized pelvic bony structures: Normal. Paravertebral soft tissues: Normal. MR/MR lumbar spine wo con* [id number] IMPRESSION: 1. Mild to moderate central canal stenosis L3-4 with slight retrolisthesis and mild disc bulging. Impingement on the LEFT greater than RIGHT subarticular rec ess. Central canal stenosis is progressed compared to previous. 2. Mild LEFT L3-4 foraminal narrowing. 3. Spinal canal is patent at the fusion levels.
== END 2023-12-14 13:23 | disposition home or self-care (01) ==
LOC: RAD 13:23
PROVIDERS: PCP Nurse Practitioner Family; Visit Provider Orthopaedic Surgery
DX: M99.63 Osseous and subluxation stenosis of intervertebral foramina of lumbar region (principal); M47.896 Other spondylosis, lumbar region; M43.26 Fusion of spine, lumbar region
CPT/HCPCS: 72148

== ENCOUNTER → 2023-12-16 14:05 | Outpatient (BNVA) | payer MEDICAID, SELFPAY | PROVIDERS: PCP Nurse Practitioner Family; Visit Provider Orthopaedic Surgery | DX: M54.41 Lumbago with sciatica, right side (principal); M54.42 Lumbago with sciatica, left side; G89.29 Other chronic pain | CPT/HCPCS: 72110 ==

== ENCOUNTER 2023-12-22 10:55 | Outpatient (CLI) | payer MEDICAID, SELFPAY ==
[2023-12-22 11:38] LABS: Basophils % 0.5 %; Eosinophils # 0.3 10^3/uL (0.0-0.8); Eosinophils % 3.2 %; Hematocrit 47.6 % (37-53); Lymphocytes # 3.4 10^3/uL (0.8-4.8); Lymphocytes % 41.5 %; Mean Corpuscular HGB Conc 33.2 g/dL (30-55); Mean Corpuscular Hemoglobin 30.1 pg (27-33); Mean Corpuscular Volume 90.7 fl (82-101); Mean Platelet Volume 10.5 fL (7.4-10.4); Monocytes # 0.5 10^3/uL (0.2-0.9); Monocytes % 6.5 %; Neutrophils # 3.91 10^3/uL (1.8-7.7); Neutrophils % 48.1 %; Nucleated Red Blood Cells % 0 %; Platelet Count 273 10^3/cmm (157-399); Red Blood Count 5.25 10^6/uL (3.85-5.65); Red Cell Distribution Width 12.1 % (12.1-15.1); White Blood Count 8.13 10^3/uL (3.29-11.43)
[2023-12-22 11:50] LABS: Bilirubin Urine Negative (Negative); Blood Urine Negative (Negative); Glucose Urine UA Negative (Normal); Ketones Urine Trace (Negative); Leukocyte Esterase Urine Negative (Negative); Nitrate Urine Negative (Negative); Protein Urine 1+ (Negative); Urine Appearance Cloudy (CLEAR); Urine Color Yellow (Yellow); pH Urine 5.5 (5-7)
[2023-12-22 11:56] LABS: Add Urine Microscopic? YES; Bacteria Urine None Seen /hpf; Hyaline Casts Urine 1.65 /lpf; RBC Urine 0-2 /hpf (0-2); Squamous Epithelial Cell Urine 0-5 /hpf (0-5); WBC Urine 0-5 /hpf (0-5)
[2023-12-22 12:02] LABS: Alanine Aminotransferase 27 U/L (0-41); Albumin Level 4.5 g/dL (3.5-5.2); Alkaline Phosphatase 131 U/L (40-130); Aspartate Amino Transferase 18 U/L (0-40); Blood Urea Nitrogen 11 mg/dL (6-20); Carbon Dioxide 25 mmol/L (22-29); Chloride 107 mmol/L (98-107); Globulin 2.1 g/dL (1.3-4.6); Glomerular Filtration Rate 73.4 mL/min (90-130); Glucose 113 mg/dL (65-115); Osmolality Calculated 292 mOsm/kg (285-295); Sodium 141 mmol/L (136-145); Total Bilirubin 0.2 mg/dL (0.15-1.2); Total Protein 6.6 g/dL (6.6-8.7)
[2023-12-22 12:22] LABS: Anion Gap 13.2 (5-19); Potassium 4.2 mmol/L (3.5-5.1)
[2023-12-22 12:24] LABS: Specific Gravity, Urine 1.038 (1.005-1.030)
== END 2023-12-22 10:56 | disposition home or self-care (01) ==
LOC: LAB 10:58
PROVIDERS: PCP Nurse Practitioner Family; Visit Provider Orthopaedic Surgery
DX: Z01.818 Encounter for other preprocedural examination (principal)
CPT/HCPCS: 36415; 80053; 81001; 85025

== ENCOUNTER 2024-01-19 13:13 | Inpatient (IN) | payer MEDICAID, SELFPAY ==
--- NOTE | 2024-01-18 16:29 | P.ANESASSM_ITS ---
Pre-Anesthetic Assessment Height/Weight: Height 5 ft 10 in Preop Diagnosis: Lumbar disc disease Operation Date: 01/19/24 07:00 Proposed Procedures p Spinal Fusion PSF(Not Applicable) - Edmundo De La Rosa DO s Lumbopelvic Fixation(Not Applicable) - Edmundo H DO Estrella s Sacroiliac Joint Fusion SI Joint Fusion(Bilateral) - Edmundo Rajendra De La Rosa DO s Lumbar Spine Decompression Lumbar Decompression(Not Applicable) - Edmundo H DO Estrella Was Beta Leon taken within 24 hours: N/A Was Clonidine taken within 24 hours: N/A Social No alcohol and No tobacco Exam alert, oriented x 3, clear to auscultation bilaterally and regular rate & rhythm Airway Submandibular: within normal limits Cervical ROM: Other (Limited neck extension, s/p neck surgery) Mallampati: Class II Dentition: full Comments: Comments: Upper chipped teeth, denies any loose Anesthetic Plan ASA status: 2 Anesthesia: General Other: No prior issues with anesthesia NPO since yesterday S/p spinal fusion Denies any cardiac or pulmonary issues. Preop BP 153/97 Limited neck extension Labs 12/22/2023 reviewed acceptable for procedure Plan for GETA Medications/Allergies Home Medications Medication Instructions Recorded Confirmed Last Taken Type acetaminophen 500 mg tablet 1,000 mg PO Q6H PRN Pain 01/18/24 01/19/24 01/18/24 History ibuprofen 800 mg tablet 800 mg PO Q6H PRN Pain 01/18/24 01/19/24 01/11/24 History Allergies Allergy/AdvReac Type Severity Reaction Status Date / Time quetiapine [From Seroquel] Allergy ADR-Chest Verified 01/19/24 06:10 Pain tramadol Allergy increased Verified 01/19/24 06:10 pain amitriptyline AdvReac Severe ALGY-Anaphy Verified 01/19/24 06:10 laxis methocarbamol AdvReac ADR-Agitate Verified 01/19/24 06:10 d [facility] Anesthesia Medical History Insomnia due to medical condition Major depressive disorder, recurrent, moderate Lumbar pain with radiation down both legs PTSD (post-traumatic stress disorder) Anxiety Failed back syndrome of lumbar spine Surgical History Hx of neck surgery Dr. De La Rosa Hx of lumbosacral spine surgery Family History Mother Diabetes Social History Smoking and tobacco/nicotine status: never used tobacco/nicotine Second hand smoke exposure: No Alcohol intake: never Substance/Drug Use: never Lives independently: Yes Data Anesthesia Cardiac Studies: No Data to Display
[2024-01-19] VITALS (29 sets, daily range): BP systolic 90–153; BP diastolic 62–97; PULSE 85–100; RESP 10–24; TEMP 36.1–37.9; O2SAT 90–100; BMI 31.5
--- NOTE | 2024-01-19 | XR_ITS ---
WS: [id number] XR lumbar spine 2-3V* [id number] REASON FOR EXAM: JUAN PICS FINDINGS: Previous posterior pedicle screws and interconnecting rods L4-S1 with interbody fusion devices at L4- L5 and L5-S1. Posterior fusion revision with pedicle screws placed at L3 and 10 oblique screws placed at the S2 level. XR/XR lumbar spine 2-3V* [id number] IMPRESSION: Posterior lumbar fusion revision as above.
[2024-01-19] MEDS: sodium chloride 0.9% 1,000 ML 30 ML IV (06:31)
--- NOTE | 2024-01-19 06:33 | W.PM.OPSUD ---
Surgery/Procedure H&P Update DATE OF PROCEDURE: January 19, 2024 DATE H&P PERFORMED: 12/31/23 H&P UPDATE INFORMATION: I have reviewed H&P completed within last 30 days, I have examined patient prior to procedure and No changes to prior documentation PREOP DIAGNOSIS: Lumbar stenosis with neurogenic claudication PLANNED PROCEDURE: Operation Date: 01/19/24 07:00 Proposed Procedures p Spinal Fusion PSF(Not Applicable) - Edmundo De La Rosa DO s Lumbopelvic Fixation(Not Applicable) - DO hernandez Cohen Sacroiliac Joint Fusion SI Joint Fusion(Bilateral) - DO hernandez Cohen Lumbar Spine Decompression Lumbar Decompression(Not Applicable) - Edmundo De La Rosa DO
[2024-01-19] MEDS: ceFAZolin 2,000 mg SDV 2000 MG IVP ×3 (07:05→22:25)
[2024-01-19] MEDS: VANCOMYCIN ADD-Vantage 1,000 MG VIAL 1000 MG XX (07:56)
[2024-01-19] MEDS: heparin, porcine 1,000 unit/mL INJ 10 mL 6000 UNIT IRRIGATION (07:57)
[2024-01-19] MEDS: lidocaine-epi 1% 20 mL INJ 10 ML INJECTION (07:58)
--- NOTE | 2024-01-19 11:20 | PM.OP ---
Operative Report Date of procedure: January 19, 2024 Pre-op diagnosis: Lumbar stenosis with neurogenic claudication Post-op diagnosis: same Procedure done: 1. L3 to pelvis fusion 2. L3-S1 posterior spine instrumentation 3. Lumbopelvic instrumentation 4. Open SI joint fusion on the right 5. Open SI joint fusion on the left 6. Use of computer navigation stereotactic for spine 7. Bone marrow aspirate from right iliac crest 8. L3-4 laminectomy with partial facetectomies 9. Use of allograft 10. Removal of deep hardware from spine 11. Revision spine surgery Surgeon: Edmundo De La Rosa DO Estimated blood loss (mL): 850 Complications: Dural tear on the right side at L3-4. And closed with a watertight seal. Procedure: 1. L3 to pelvis fusion 2. L3-S1 posterior spine instrumentation 3. Lumbopelvic instrumentation 4. Open SI joint fusion on the right 5. Open SI joint fusion on the left 6. Use of computer navigation stereotactic for spine 7. Bone marrow aspirate from right iliac crest 8. L3-4 laminectomy with partial facetectomies 9. Use of allograft 10. Removal of deep hardware from spine 11. Revision spine surgery Patient brought to the operative suite after undergoing anesthesia was placed in the prone position. All areas impingement well-padded. Patient is prepped and draped in normal sterile fashion. Skin incisions made using the previous skin incision extending slightly above and below. The thoracolumbar fascia was split and subperiosteal dissection was made out to the transverse process of L3. The screws were identified at L4-S1 bilaterally. Transverse processes of the L4 and 5 were identified and dissected out as well. Sacrum and SI joints were dissected out as well. The screw caps and rods were then removed. Next attension was was brought to the bone marrow aspirate. This was done by using the e[employer] cell bone marrow aspiration kit. The iliac crest was identified and through a separate incision through the fascia and the bone marrow aspiration kit was inserted into the right iliac crest. Bone marrow aspirate was taken 20 cc. This was mixed with the allograft. Next attention was brought to placing the fiducial for the C-arm. This is going to be used for the computer navigation. 2 pins were placed into the right iliac crest which were later moved to the end of the case. The fiducial was attached. C-arm was brought in and then spun around the patient. The information from serum was then later used after is loaded the computer for the placement of pedicle screws. Next attention was brought to placing the pedicle screws. This was done at L3 bilaterally. The computer navigated awl was inserted into the pedicle. Followed by the pedicle feeler. Then 2 50 mm screws were placed into the L3 pedicles using the computer navigation. Next attention was placing the iliac screws. This was done using the computer navigated awl. This is placed through the ala across the SI joint into the iliac crest. Then followed by the pedicle feeler. Followed by computer navigated tap. 100 mm 9.5mm pedicle screws were then placed into the iliac crest. This was done bilaterally. Next attention was brought to the open SI joint fusions. This was done by using the computer navigated awl crossing the SI joint. Through direct visualization as well. The pedicle feeler was used to make sure was crossed no breaches. The canal was then filled with bone graft. And then a computer navigated SI joint fusion screws placed across the SI joint. This process was done on both the right and the left side. It was brought to performing the L3-4 laminectomy with partial facetectomies. This was done by using a rongeur to take down the spinous process of L3 the lamina was taken down with a high-speed bur. Medial aspect of facet joints were taken down. The ligamentum flavum was taken down to the remaining bone that was at L4. The remaining bone of L4 was peeled off the dura and removed. There was a small tear that occurred on the right side. The nerve roots were packed back in into the dura and the dura was then repaired with a Nurolon stitch. Piece of Dermabond was placed over this. And then DuraSeal was placed over this. Wounds were then irrigated. The andrea was then attached from L3 into the tulips of L4, L5, S1 and into the iliac screw completing the lumbopelvic fixation. The screw caps were then torqued into position. This was done bilaterally. Next attention was brought to decorticating the transverse processes of L3 bilaterally L4 bilaterally L5 bilaterally and Next attention was brought to decorticating the transverse processes of L3 bilaterally, L4 bilaterally, L5 bilaterally the sacral ala and over the SI joint. Osteol amp bone graft was then packed into the gutters. And across the SI joint. Vancomycin powder was placed deep drain was placed and wound was closed in layered fashion with Vicryl and Monocryl. Sterile dressings were applied patient was transferred to the PACU in stable condition.
[2024-01-19] MEDS: fentaNYL 50 mcg/mL INJ 2mL IVP (12:10)
--- NOTE | 2024-01-19 13:15 | ANE.PACU2 ---
Inpatient post-anesthesia follow up: Airway intact: Yes Vital signs: Temperature 98.9 F Pulse Rate 95 Respiratory Rate 17 Blood Pressure 116/75 Pulse Oximetry 97 Oxygen Delivery Me thod Nasal Cannula Oxygen Flow Rate 3 Fraction of Inspir ed Oxygen Hydration adequate: Yes Nausea and vomiting: No Pain level: 3 Mental status: Baseline
--- NOTE | 2024-01-19 13:21 | PC.NURSE ---
1310 - Patient taken to room 271. V/S taken - Temp 98.8, BP 111/73, HR 94, RR 18, 96% on 3L. KAELA Bartholomew at bedside.
[2024-01-19] MEDS: ketorolac 30 mg/mL INJ IVP (13:48)
[2024-01-19] MEDS: lactated ringers 1,000 ML 90 ML IV (13:49)
[2024-01-19] MEDS: morphine 4 mg/mL SDV 1 mL 2 MG IVP ×2 (16:10→20:21)
[2024-01-19] MEDS: ondansetron 2 mg/ML SDV 2 mL 4 MG IVP (16:16)
[2024-01-19] MEDS: HYDROcodone-acetaminophen 5-325 mg Tablet PO ×2 (18:01→22:25)
[2024-01-19] MEDS: docusate sodium 100 mg Capsule PO (18:01)
[2024-01-19] MEDS: acetaminophen 325 mg Tablet 650 MG PO (20:22)
[2024-01-20] VITALS (10 sets, daily range): BP systolic 121–145; BP diastolic 74–89; PULSE 100–111; RESP 16–18; TEMP 37.1–37.6; O2SAT 92–98
[2024-01-20] MEDS: morphine 4 mg/mL SDV 1 mL 2 MG IVP ×3 (00:19→08:35)
[2024-01-20] MEDS: HYDROcodone-acetaminophen 5-325 mg Tablet PO ×3 (02:19→11:11)
[2024-01-20 06:49] LABS: Basophils % 0.1 %; Eosinophils % 0.1 %; Hematocrit 33.7 % (37-53); Lymphocytes # 1.7 10^3/uL (0.8-4.8); Lymphocytes % 12.1 %; Mean Corpuscular HGB Conc 33.2 g/dL (30-55); Mean Corpuscular Volume 93.4 fl (82-101); Mean Platelet Volume 10.4 fL (7.4-10.4); Monocytes # 0.9 10^3/uL (0.2-0.9); Monocytes % 6.5 %; Neutrophils % 80.7 %; Nucleated Red Blood Cells % 0 %; Platelet Count 183 10^3/cmm (157-399); Red Blood Count 3.61 10^6/uL (3.85-5.65); Red Cell Distribution Width 12.3 % (12.1-15.1); White Blood Count 14.25 10^3/uL (3.29-11.43)
--- NOTE | 2024-01-20 07:55 | P.PN_ITS ---
Subjective 2 Subjective: Patient is laying flat in bed. At this point we will set him up 30 degrees. Will pull the drain out just see his Camp. Vitals/I&O/Wt Last Vital Signs Temp 99.7 F H 01/20/24 04:45 Pulse 100 01/20/24 04:45 Resp 16 01/20/24 04:45 BP 122/80 01/20/24 04:45 Pulse Ox 98 01/20/24 04:45 O2 Del Method Nasal Cannula 01/20/24 04:45 O2 Flow Rate 1 01/20/24 04:45 FiO2 3 01/19/24 16:05 01/19/24 01/20/24 01/20/24 22:59 06:59 14:59 Intake Total 1126.5 / 2226.5 300 / 2526.5 Output Total 220 / 1470 1245 / 2715 Balance 906.5 / 756.5 -945 / -188.5 Weight last 48 hrs Weight 231 lb 8 oz Weight 220 lb Weight 220 lb Physical Exam 2 Narrative: Patient is 5/5 strength bilateral lower extremities sensation intact. Urinary Catheter Management: Camp: Cath Placed During This Visit: yes Reason for Continuing Indwelling Catheter: Perioperative Use in Selected Surgeries Urinary Catheter Date of Insertion: 01/19/24 Urinary Catheter Time of Insertion: 07:20 Data 01/20/24 06:38 A&P Assessment and plan (1) Status post lumbar spinal fusion: Will sit patient up 30 degrees and then if he does okay in the next hour we will set him up more. If 2 hours from now he is feeling okay we will start get him up with physical therapy and see how he does. DC drain DC Camp Attestations 2 Medical Necessity Statement*: Pain control Coding Level of Care Code Acute Code for Chg Fwd Diagnoses Status post lumbar spinal fusion Z98.1
[2024-01-20] MEDS: docusate sodium 100 mg Capsule PO (08:34)
[2024-01-20] MEDS: ceFAZolin 2,000 mg SDV 2000 MG IVP (08:34)
[2024-01-20 10:57] LABS: Glucose Point of Care 142 mg/dL (70-110)
[2024-01-20] MEDS: lactated ringers 1,000 ML 30 ML IV (11:09)
--- NOTE | 2024-01-20 15:28 | PC.SOCIAL ---
Conduit Cleaner: DME Patient was not a trigger. Vicente from PT calls and reports that patient will need a FWW for DC. CM to room and spoke to patient. Choice sheet completed and placed in chart. Order received. Pre-Cert completed confirmation #: [id number] and faxed to HOME @ this time.
--- NOTE | 2024-01-20 15:30 | PC.SOCIAL ---
Banquet Manager: Pre-[facility] number# [phone].
[2024-01-20] MEDS: oxyCODONE 5 mg IR Tab/Cap PO (16:14)
[2024-01-20 16:41] LABS: Glucose Point of Care 145 mg/dL (70-110)
--- NOTE | 2024-01-20 16:42 | PC.NURSE ---
Discussed discharge, Activity Restrictions and additional instructions with patient. Discussed medications, signs and symptions of infections with patient. Pharmacy brought medications to bedside. Patient and spouse verbalized understanding.
--- NOTE | 2024-01-21 12:19 | P.DS_ITS ---
Discharge Providers Date of Admission: 01/19/24 13:13 Date of Discharge: January 20, 2024 Attending Provider at Admission: Edmundo De La Rosa DO Attending Provider at Discharge: Edmundo De La Rosa DO Primary Care Provider: CONCEPCIÓN العلي Diagnoses at Discharge Discharge Diagnosis (1) Status post lumbar spinal fusion: Status: Acute Reason for Visit Reason for Visit: M48.062 Physical Exam Urinary Catheter Management: Camp: Cath Placed During This Visit: yes Reason for Continuing Indwelling Catheter: Perioperative Use in Selected Surgeries Urinary Catheter Date of Insertion: 01/19/24 Urinary Catheter Time of Insertion: 07:20 Discharge Data Studies Completed and Pending Completed Studies During Hospitalization Category Date Time Status XR lumbar spine 2-3V* [id number] Routine Exams 01/19/24 00:00 Completed Radiology Impressions Lumbar Spine X-Ray 01/19/24 00:00 IMPRESSION: Posterior lumbar fusion revision as above. Laboratory Results WBC 14.25 10^3/uL (3.29-11.43) H 01/20/24 06:38 RBC 3.61 10^6/uL (3.85-5.65) L 01/20/24 06:38 Hgb 11.20 g/dL (11.27-16.99) L 01/20/24 06:38 Hct 33.7 % (37-53) L 01/20/24 06:38 MCV 93.4 fl (82-101) 01/20/24 06:38 MCH 31.0 pg (27-33) 01/20/24 06:38 MCHC 33.2 g/dL (30-55) 01/20/24 06:38 RDW 12.3 % (12.1-15.1) 01/20/24 06:38 Plt Count 183 10^3/cmm (157-399) 01/20/24 06:38 MPV 10.4 fL (7.4-10.4) 01/20/24 06:38 Neut % (Auto) 80.7 % 01/20/24 06:38 Lymph % (Auto) 12.1 % 01/20/24 06:38 Nuckolls % (Auto) 6.5 % 01/20/24 06:38 Eos % (Auto) 0.1 % 01/20/24 06:38 Baso % (Auto) 0.1 % 01/20/24 06:38 Neut # (Auto) 11.50 10^3/uL (1.8-7.7) H 01/20/24 06:38 Lymph # (Auto) 1.7 10^3/uL (0.8-4.8) 01/20/24 06:38 Nuckolls # (Auto) 0.9 10^3/uL (0.2-0.9) 01/20/24 06:38 Eos # (Auto) 0.0 10^3/uL (0.0-0.8) 01/20/24 06:38 Baso # (Auto) 0.0 10^3/uL (0.0-0.1) 01/20/24 06:38 Nucleated RBC % (auto) 0 % 01/20/24 06:38 Nucleated RBCs # 0.0 /100WBC 01/20/24 06:38 POC Glucose 145 mg/dL (70-110) H 01/20/24 16:28 Blood Type O Positive 01/19/24 06:20 Rho(D) Type Rh positive 01/19/24 06:20 Antibody Screen Negative 01/19/24 06:20 Vitals Last Vital Signs Temp 99.2 F 01/20/24 16:58 Pulse 111 H 01/20/24 16:58 Resp 16 01/20/24 16:58 BP 128/88 01/20/24 16:58 Pulse Ox 92 01/20/24 16:58 O2 Del Method Room Air 01/20/24 15:13 O2 Flow Rate 1 01/20/24 12:18 FiO2 3 01/19/24 16:05 Discharge Plan Discharge Patient Disposition: Home Condition: Stable Prescriptions: New hydrocodone-acetaminophen 5-325 mg tablet 1 - 2 tab PO .Q4-6H Qty: 40 0RF Discontinued ibuprofen 800 mg Tablet 800 mg PO Q6H PRN (Reason: Pain) acetaminophen 500 mg Tablet 1,000 mg PO Q6H PRN (Reason: Pain) Discharge Orders: Discharge Order (Routine); Ordered 01/20/24 Ordered By: Edmundo De La Rosa Other Ambulatory Orders: DME: Walker (Order) Location: None Selected Ordered By: Edmundo De La Rosa Referrals: Edmundo De La Rosa, [Physician] - 02/01/24 3:45 pm Discharge Diet: Advance as tolerated Discharge Activity: Limit activity as instructed Patient Instructions: Acute Wound Care (DC), Opioid Safety, Post Anesthesia Care Activity Restrictions/Additional Instructions: Thank you for [facility] for your care! The following is a list of instructions, from your provider, to follow upon your discharge to ensure you have the optimal recovery from your recent injury orsurgery. Follow-up care is a zapien part of your treatment and safety. Be sure to make and go to all appointments, and call your doctor if you are having problems. If you do not already have a follow-up appointment made, call Dr. De La Rosa office in the next 1-3 days to make follow up appointment for 1 weeks at [phone]. It is also a good idea to know your test results and keep a list of the medicines you take. Medications will be prescribed for you at your provider's discretion. These medications are to be used as instructed; if they are taken more often that prescribed they will not be refilled early and in most cases will not be refilled at all. > When a refill is needed,you should contact aman adams 2-3 business days before your prescription runs out. Medications will NOT be refilled by emergency response technician providers after hours! > Many pain medications contain Tylenol (Acetaminophen). Do not consume more than 4,000 mg of Tylenol per day in total with any combination ofmedications. > Pain medications can cause constipation. Please use an over the counter stool softener as directed, while taking pain medications. Consulty our local pharmacist with questions or recommendations on stool softeners. If constipation persists, contact our office or your primary care provider. > While under our care,you are not to receive pain medications or other controlled substances from any other provider unless our office is notified and approves. Any attempts to do so will result in refusal to prescribe any further pain medications and possible dismissal from our practice. ? Keep dressing on until we see you in 1 week in the clinic. ? Showering is permitted, however we ask that you do not take a bath, sit in a whirlpool / Jacuzzi, or go swimming for 1 month. For only the first 2 days after surgery, lt wilt be necessary for you to cover your wound/dressing with plastic and tape to keep it dry. ? Walking is essential for the healing process after surgery. We would like you to slowly advance your walking. This should be done on relatively flat clear ground (inside or out) or can be done on a treadmill. Remember this goal does not have to happen all at once, slowly increase your distance and duration. This can be broken into more more than one walk per day as tolerated. Patients who walk as directed after surgery rarely require Physical Therapy. In the unlikely event this issue arises your provider will direct hospital staff to make the appropriate arrangements. ? No lifting over 5 pounds {a gallon of milk) or bending/twisting until further notice. Each of these activities places an unnecessary amount of stress onto the body and can impede the delicate healing process. > Instead of bending at the waist, keep your back straight and bend at the knees. > Instead of twisting your torso, keep your back straight and turn your entire body with your feet. ? You may sleep in any position which makes you comfortable. Many patients find comfort sleeping in a reclining chair. It is not abnormal to have difficulty sleeping for the first several weeks following your surgery. We recommend trying Benadry! or Tylenol PM as directed to help with your sleeping difficulties. Both medications are over the counter and available withoutprescription. ? NO SMOKING!!! Smoking dramatically increases the probability of developing postoperative wound infections. ? Common complaints after lumbar and/or thoracic spine surgery include, but are not limited to: numbness and/or tingling in the legs, pain around the incision and surrounding tissues, muscle spasms, or stiffness of the middle to low back. Contact our office if these symptoms persist or if an acute change occurs. ? No driving for the first 3-5days, and not while taking narcotics until seen at your follow-up appointment and cleared. There are no restrictions for riding on short trips, however if you take a longer trip, arrangements should be made to make regular stops to get out of the vehicle and stretch . ? Swelling is an unfortunate event that will take place with any surgery and is the primary source of your postoperative discomfort. While walking and regular approved activities helps control inflammation, there are additional steps you can take to minimizeswelling. > Place ice over the surgical site and surrounding tissue for twenty minutes, followed by applying a low/medium heat (heating pad) for an additional twenty minutes every 1-2 hours as needed for painrelief. > You may use of over the counter anti-inflammatory medications (Ib uprofen, Motrin, Aleve, Advil, etc) as directed on the package label. These types of medicines wm significantly reduce the amount of discomfort you experience after surgery from swelling. It should be noted that if you have and allergy to any of these medications, or a history of ulcers or kidney disease you should consult you primary care provider prior to starting these medications. Discharge Attestations Time Spent in Discharge Care*: less than 30 min Quality Metrics Clinical Quality Measures [ No reported AMI, CVA or VTE this stay] Coding Level of Care Code Acute Code for Chg Fwd Diagnoses Status post lumbar spinal fusion Z98.1
== END 2024-01-20 17:01 | disposition home or self-care (01) | DRG 451 ==
LOC: MEDSURG 15:20
PROVIDERS: Admitting Provider Orthopaedic Surgery; PCP Nurse Practitioner Family; Visit Provider Orthopaedic Surgery
PROC: 0SG30K1 Fusion of Lumbosacral Joint with Nonautologous Tissue Substitute, Posterior Approach, Posterior Column, Open Approach (ICD-10-PCS; principal; 2024-01-19 07:00)
PROC: 0SG30K1 Fusion of Lumbosacral Joint with Nonautologous Tissue Substitute, Posterior Approach, Posterior Column, Open Approach (ICD-10-PCS; 2024-01-19 07:00)
PROC: 0SG30K1 Fusion of Lumbosacral Joint with Nonautologous Tissue Substitute, Posterior Approach, Posterior Column, Open Approach (ICD-10-PCS; CPT 27280; 2024-01-19 07:00)
PROC: 0SG30K1 Fusion of Lumbosacral Joint with Nonautologous Tissue Substitute, Posterior Approach, Posterior Column, Open Approach (ICD-10-PCS; CPT 63005; 2024-01-19 07:00)
DX: M48.062 Spinal stenosis, lumbar region with neurogenic claudication (principal)
CPT/HCPCS: 36415; 36416; 51702; 72100; 76000; 82962; 85025; 86850; 86900; 97116; 97161; C1713; J0330; J0690; J1100; J1171; J1644; J1885; J2250; J2270; J2371; J2405; J2704; J2710; J3010; J3370; J3490; J7030; J7120; P9045

== ENCOUNTER 2024-01-26 16:10 | Emergency (ER) | payer MEDICAID, SELFPAY ==
[2024-01-26 16:26] VITALS: BP 132/80; PULSE 108; RESP 16; TEMP 37.1; O2SAT 98; BMI 31.5
--- NOTE | 2024-01-26 17:50 | ED_ITS ---
Documented by User: Emmanuel Erazo DO 01/31/24 05:57 HPI - Wound/Laceration General: Chief Complaint: Wound/Laceration Stated Complaint: discharge from back surgey incestion Time Seen by Provider: 01/26/24 16:49 History of Present Illness: 43-year-old male presents to the emergen cy room with drainage from the wound on his back. Patient had a lumbar surgery on 01/19 today began having serosanguineous drainage. No fever sweats or chills. No increased pain in his back no pain radiating to his leg. Associated symptoms: Denies chills or fever(s) Related Data Previous Rx's Medication Instructions Recorded hydrocodone 5 mg-acetaminophen 325 1 - 2 tab PO .Q4-6H PRN pain 7 01/27/24 mg tablet days #40 tabs Allergies Allergy/AdvReac Type Severity Reaction Status Date / Time quetiapine [From Seroquel] Allergy ADR-Chest Verified 01/26/24 16:31 Pain tramadol Allergy increased Verified 01/26/24 16:31 pain amitriptyline AdvReac Severe ALGY-Anaphy Verified 01/26/24 16:31 laxis methocarbamol AdvReac ADR-Agitate Verified 01/26/24 16:31 d Review of Systems Const: Denies: fever(s) or chills Card: Denies: chest pain Resp: Denies: dyspnea GI: Denies: abdominal pain : Denies: dysuria, urinary frequency or urinary urgency Musc: Reports: back pain; Denies: neck pain or extremity pain Skin/Breast: Denies: rash PFSH ED PFSH: Medical History Insomnia due to medical condition Major depressive disorder, recurrent, moderate Lumbar pain with radiation down both legs PTSD (post-traumatic stress disorder) Anxiety Failed back syndrome of lumbar spine Surgical History Hx of neck surgery Dr. De La Rosa Hx of lumbosacral spine surgery Family History Mother Diabetes Social History Smoking and tobacco/nicotine status: never used tobacco/nicotine Second hand smoke exposure: No Alcohol intake: never Substance/Drug Use: never Lives independently: Yes Physical Exam Const: COMMON NORMALS: no acute distress GENERAL APPEARANCE: cooperative and comfortable ORIENTATION/CONSCIOUSNESS: Yes awake, Yes oriented to person, Yes oriented to place and Yes oriented to time HENMT: COMMON NORMALS: normocephalic, atraumatic and hearing grossly normal bilaterally HEAD & SCALP: normocephalic and atraumatic Resp: COMMON NORMALS: normal respiratory effort, No retractions, No use of accessory muscles and clear to auscultation bilaterally AUSCULTATION: clear to auscultation bilaterally Cardio: COMMON NORMALS: regular rate, regular rhythm and No murmurs present (Cardio) RATE: regular rate RHYTHM: regular rhythm GI: COMMON NORMALS: Soft to palpation and No hepatosplenomegaly present AUSCULTATION: Yes normoactive bowel sounds PALPATION: Yes Soft to palpation, No Tenderness to palpation present (GI), No Guarding due to palpation present (GI) and Yes No hepatosplenomegaly present Back/Pelvis: OTHER: Dressing removed and soaked with large tinged serous drainage. No induration, no induration along the skin no dehiscence of the wound edges. No purulent drainage. Extremity: COMMON NORMALS: normal to inspection, capillary refill normal, no clubbing, cyanosis or edema, no calf tenderness and no pedal edema Neuro: SENSORIUM/ORIENTATION: Yes oriented to person, Yes oriented to place and Yes oriented to time Skin: COMMON NORMALS: no rashes or lesions noted GENERAL SKIN EXAM: no rashes or lesions noted Course Vital Signs: Vital signs: Vital Signs Temperature 98.8 F 01/26/24 16:26 Pulse Rate 108 H 01/26/24 16:26 Respiratory Rate 16 01/26/24 16:26 Blood Pressure 132/80 01/26/24 16:26 Pulse Oximetry 98 01/26/24 16:26 Oxygen Delivery Me thod Room Air 01/26/24 16:26 MDM - Wound/Laceration Medical Decision Making And examined does not. Infected on physical exam. The drainage is serosanguineous likely from these were normal within the wound. Reviewed with patient that these are not uncommon with back surgery and resulting intermittent large amounts of drainage with movement. Wound was redressed were awaiting lab work. Care signed out to Dr. Duran at change of shift. See final notes for diagnosis and disposition. Care transitioned at shift over shift change, we will try and get labs on the patient. We already changed the patient's dressing. Patient said he would not give us any lab and just wanted to go home after the dressing was changed. Patient left AMA. Discharge Plan Discharge Patient Disposition: Left Against Medical Advice Clinical Impression: Left against medical advice Condition: Stable Prescriptions: No Action hydrocodone-acetaminophen 5-325 mg tablet 1 - 2 tab PO .Q4-6H PRN (Reason: pain) 7 Days Qty: 40 0RF Referrals: Marcela Boykin FNP [Primary Care Provider] - 1-3 days Patient Instructions: Against Medical Advice (ED) Coding Level of Care Code ED Multimedia Educational Specialist for Chg Fwd Documented by User: Otf Duran DO 01/26/24 22:20 HPI - Wound/Laceration General: Chief Complaint: Wound/Laceration Stated Complaint: discharge from back surgey incestion Time Seen by Provider: 01/26/24 16:49 Related Data Previous Rx's Medication Instructions Recorded hydrocodone 5 mg-acetaminophen 325 1 - 2 tab PO .Q4-6H PRN pain 7 01/27/24 mg tablet days #40 tabs Allergies Allergy/AdvReac Type Severity Reaction Status Date / Time quetiapine [From Seroquel] Allergy ADR-Chest Verified 01/26/24 16:31 Pain tramadol Allergy increased Verified 01/26/24 16:31 pain amitriptyline AdvReac Severe ALGY-Anaphy Verified 01/26/24 16:31 laxis methocarbamol AdvReac ADR-Agitate Verified 01/26/24 16:31 d Review of Systems General: Reports: 10 or more systems reviewed and unremarkable except in HPI and below PFSH ED PFSH: Medical History Insomnia due to medical condition Major depressive disorder, recurrent, moderate Lumbar pain with radiation down both legs PTSD (post-traumatic stress disorder) Anxiety Failed back syndrome of lumbar spine Surgical History Hx of neck surgery Dr. De La Rosa Hx of lumbosacral spine surgery Family History Mother Diabetes Social History Smoking and tobacco/nicotine status: never used tobacco/nicotine Second hand smoke exposure: No Alcohol intake: never Substance/Drug Use: never Lives independently: Yes Physical Exam Back/Pelvis: OTHER: Drainage contain serosanguineous fluid., Clean and redress per nursing. Course Vital Signs: Vital signs: Vital Signs Temperature 98.8 F 01/26/24 16:26 Pulse Rate 108 H 01/26/24 16:26 Respiratory Rate 16 01/26/24 16:26 Blood Pressure 132/80 01/26/24 16:26 Pulse Oximetry 98 01/26/24 16:26 Oxygen Delivery Me thod Room Air 01/26/24 16:26 MDM - Wound/Laceration Medical Decision Making Care transitioned at shift over shift change, we will try and get labs on the patient. We already changed the patient's dressing. Patient said he would not give us any lab and just wanted to go home after the dressing was changed. Patient left AMA. All radiology interpretation(s) finalized by discharge Discharge Plan Discharge Patient Disposition: Left Against Medical Advice Clinical Impression: Left against medical advice Condition: Stable Prescriptions: No Action hydrocodone-acetaminophen 5-325 mg tablet 1 - 2 tab PO .Q4-6H PRN (Reason: pain) 7 Days Qty: 40 0RF Referrals: Marcela Boykin FNP [Primary Care Provider] - 1-3 days Patient Instructions: Against Medical Advice (ED) Coding Level of Care Code ED Multimedia Educational Specialist for Adelia Thomas
[2024-01-26] MEDS: HYDROcodone-acetaminophen 5-325 mg Tablet 2 TAB PO (18:45)
[2024-01-26] MEDS: ondansetron 4 MG Tablet PO (18:45)
== END 2024-01-26 19:44 | disposition left against medical advice (07) ==
PROVIDERS: Emergency Provider Family Medicine; PCP Nurse Practitioner Family
DX: Z53.21 Procedure and treatment not carried out due to patient leaving prior to being seen by health care provider (principal)
CPT/HCPCS: 99283; Q0162

== ENCOUNTER → 2024-02-29 15:34 | Outpatient (BNVA) | payer MEDICAID, SELFPAY | PROVIDERS: PCP Nurse Practitioner Family; Visit Provider Orthopaedic Surgery | DX: M54.9 Dorsalgia, unspecified (principal) | CPT/HCPCS: 72100 ==

== ENCOUNTER → 2024-04-11 12:47 | Outpatient (BNVA) | payer MEDICAID, SELFPAY | PROVIDERS: PCP Nurse Practitioner Family; Visit Provider Orthopaedic Surgery | DX: Z98.1 Arthrodesis status (principal) | CPT/HCPCS: 72100 ==

== ENCOUNTER → 2024-07-11 12:54 | Outpatient (BNVA) | payer MEDICAID, SELFPAY | PROVIDERS: PCP Nurse Practitioner Family; Visit Provider Orthopaedic Surgery | DX: Z98.1 Arthrodesis status (principal) | CPT/HCPCS: 72100 ==

== ENCOUNTER → 2024-10-12 13:02 | Outpatient (BNVA) | payer MEDICAID, SELFPAY | PROVIDERS: PCP Nurse Practitioner Family; Visit Provider Orthopaedic Surgery | DX: Z98.1 Arthrodesis status (principal) | CPT/HCPCS: 72100 ==

== ENCOUNTER → 2025-01-18 13:02 | Outpatient (BNVA) | payer MEDICAID, SELFPAY | PROVIDERS: PCP Nurse Practitioner Family; Visit Provider Orthopaedic Surgery | DX: Z47.89 Encounter for other orthopedic aftercare (principal); Z98.1 Arthrodesis status | CPT/HCPCS: 72100 ==

== ENCOUNTER 2025-02-02 08:56 | Outpatient (CLI) | payer MEDICAID, SELFPAY ==
--- NOTE | 2025-02-02 09:07 | CT_ITS ---
WS: [id number] CT LUMBAR SPINE TECHNIQUE: Contrast-enhanced CT of the lumbar spine with coronal and sagittal reformatted images. CLINICAL INFORMATION: Back pain COMPARISON: MRI 12/14/2023 DLP: 714.[address] scans at [facility] use at least one of these dose optimization techniques: automated exposure control; mA and/or kV adjustment per patient size (includes targeted exams where dose is matched to clinical indication); or iterative reconstruction. FINDINGS: Mild lumbar curve. No acute compression. Pedicle screw fixation L3-S1 with sacroiliac fixation screws. Interbody fusion L4-L5 and L5-S1. Chronic fracture or limbus vertebra anterior superior endplate L4 this is unchanged since MRI 2020 Interconnecting rods appear intact. Pedicle screws appear intact. No evidence of hardware loosening. L1-L2: Normal. L2-L3: Mild annular bulging. Narrowing of the subarticular recess bilaterally appears progressed since the prior MRI. Foramen are patent. Mild facet arthropathy with ligamentum flavum hypertrophy. L3-L4: Slight retrolisthesis. Mild annular bulging with slight effacement of the ventral thecal sac. Laminectomy defects. Spinal canal is patent. Mild LEFT proximal foraminal narrowing L4-L5: Interbody fusion. Laminectomy defects. Spinal canal is patent. Mild LEFT bony foraminal narrowing. Slight narrowing of the LEFT subarticular recess. L5-S1: Interbody fusion. Spinal canal is patent. Laminectomy defects. Mild LEFT and no significant RIGHT foraminal narrowing. Visualized pelvic bony structures: Normal. Paravertebral soft tissues: Normal. CT/CT lumbar spine w con [id number] IMPRESSION: 1. Pedicle screw fixation L3-S1 with interbody fusion grafts. No evidence of h ardware loosening. Hardware appears intact. 2. Laminectomy defects L3-4 new since the prior MRI with spinal canal decompre ssion. 3. Mild LEFT L3-L4, LEFT L4-L5 and LEFT L5-S1 foraminal narrowing. 4. Slight narrowing LEFT L4-5 subarticular recess. 5. Mild central canal stenosis L2-3 with narrowing of the subarticular recess bilaterally. This appears progressed since the prior MRI. 6. Mild clumping of the nerve rootlets at the L4 level can be seen with arachn oiditis.
--- NOTE | 2025-02-02 09:30 | IR_ITS ---
WS: [id number] MYELOGRAM LUMBAR SPINE Fluoroscopic guided lumbar myelogram CLINICAL INFORMATION: back pain TECHNIQUE: The procedure, including risks, benefits, and complications, were discussed with the patient who agreed to proceed. A timeout was performed to confirm correct patient, procedure, and site. Using sterile technique, the patient was prepped and draped in the usual sterile fashion. After administration of local anesthesia using 1% preservative-free lidocaine and using fluoroscopic guidance, a 22-gauge spinal needle was advanced into the subarachnoid space at the L2-3 level. Subsequently 13 cc of Omnipaque 240 was administered into the thecal sac. The needle was removed and hemostasis was achieved. Spot fluoroscopic images were obtained. FLUOROSCOPIC TIME: 2min [id number] # of spot films: 6 Spot fluoroscopic images demonstrate pedicle screw fixation L3-S1. Bilateral sacroiliac fixation screws. Interbody fusion L4-L5 and L5-S1. Please see CT myelogram report for additional detail. IR/IR myelogram sp lumbar [id number] IMPRESSION: Uncomplicated lumbar myelogram
[2025-02-02] MEDS: iohexol 240 mg/mL 50 mL Btl 25 ML INTRATHECA (13:57)
== END 2025-02-02 08:57 | disposition home or self-care (01) ==
LOC: RAD 08:56
PROVIDERS: PCP Nurse Practitioner Family; Visit Provider Orthopaedic Surgery
DX: M48.061 Spinal stenosis, lumbar region without neurogenic claudication (principal); Z98.1 Arthrodesis status; M47.816 Spondylosis without myelopathy or radiculopathy, lumbar region; M51.360 Other intervertebral disc degeneration, lumbar region with discogenic back pain only
CPT/HCPCS: 62304; 72132